=== PATIENT | female | born 1960 | race Caucasian/White ===

== ENCOUNTER → 2020-02-14 | Outpatient (REF) | payer BC ==
[2020-02-14 16:09] LABS: ALBUMIN 4.3 GM/DL (3.2-5.2); ALT/SGPT 50 U/L (12-78); BILIRUBIN,TOTAL 0.3 MG/DL (0.2-1.0); BLOOD UREA NITROGEN 11 MG/DL (7-18); CALCIUM LEVEL 10.2 MG/DL (8.5-10.1); CARBON DIOXIDE LEVEL 26 MEQ/L (21-32); CHLORIDE LEVEL 107 MEQ/L (98-107); GLOMERULAR FILTRATION RATE > 60.0 (>51); GLUCOSE, FASTING 77 MG/DL (70-100); POTASSIUM SERUM 4.6 MEQ/L (3.5-5.1); SODIUM LEVEL 138 MEQ/L (136-145); TOTAL PROTEIN 8.3 GM/DL (6.4-8.2)
[2020-02-14 18:27] LABS: CREATININE, URINE 71.3 MG/DL; MALB URINE SIEMENS 15.5 MG/L; MAU/CREAT RATIO 21.7 MCG/MG (0.0-30.0)
== END ==
LOC: M SFHCPLAZ 14:30
PROVIDERS: ATTEND Nurse Practitioner Family
DX: E11.9 Type 2 diabetes mellitus without complications (principal)

== ENCOUNTER → 2020-08-01 | Outpatient (REF) | payer BC ==
[2020-08-01 12:35] LABS: CREATININE, URINE 71.9 MG/DL; MALB URINE SIEMENS < 5.0 MG/L; MAU/CREAT RATIO 6.9 MCG/MG (0.0-30.0)
[2020-08-01 15:06] LABS: HEMOGLOBIN A1c 6.4 %
[2020-08-01 20:46] LABS: ALBUMIN 3.9 GM/DL (3.2-5.2); ALT/SGPT 27 U/L (12-78); BILIRUBIN,TOTAL 0.2 MG/DL (0.2-1.0); BLOOD UREA NITROGEN 11 MG/DL (7-18); CALCIUM LEVEL 9.1 MG/DL (8.5-10.1); CARBON DIOXIDE LEVEL 23 MEQ/L (21-32); CHLORIDE LEVEL 107 MEQ/L (98-107); CHOLESTEROL LEVEL 235 MG/DL (<200); CHOLESTEROL RISK RATIO 4.272 (<5); CREATININE FOR GFR 0.87 MG/DL (0.55-1.30); GLOMERULAR FILTRATION RATE > 60.0 (>51); GLUCOSE, FASTING 96 MG/DL (70-100); HDL CHOLESTEROL 55 MG/DL (>40); LDL CHOLESTEROL 152 MG/DL (<100); MAGNESIUM LEVEL 2.4 MG/DL (1.8-2.4); NON-HDL-C 180 MG/DL; POTASSIUM SERUM 4.8 MEQ/L (3.5-5.1); SODIUM LEVEL 139 MEQ/L (136-145); TOTAL PROTEIN 7.5 GM/DL (6.4-8.2); TRIGLYCERIDES LEVEL 138 MG/DL (<150)
== END ==
LOC: M PLALAB 08:25
PROVIDERS: ATTEND Nurse Practitioner Family
DX: Z13.220 Encounter for screening for lipoid disorders (principal); E11.9 Type 2 diabetes mellitus without complications; K21.9 Gastro-esophageal reflux disease without esophagitis

== ENCOUNTER → 2020-08-21 | Outpatient (REF) | payer BC | LOC: M SFHCPLAZ 17:20 | PROVIDERS: ATTEND Nurse Practitioner Family | DX: Z12.4 Encounter for screening for malignant neoplasm of cervix (principal) | CPT/HCPCS: 87624; G0123 ==

== ENCOUNTER → 2020-09-10 | Outpatient (CLI) | payer BC ==
[~2020-09-10] MED LIST: FAMO40TA3; GLIP10TA18; JANU100T
--- NOTE | 2020-09-10 13:00 | REPMRS ---
Patient History The patient states she had a clinical breast exam in 08/2020 Baseline Mammogram Patient is postmenopausal. No known family history of cancer. Digital Woman Screen Mammo: September 10, 2020 - Exam #: [id number] Bilateral CC and MLO view(s) were taken. Technologist: Gladys Mosqueda, Technologist No prior studies available for comparison. FINDINGS: The breast tissue is almost entirely fat. The Volpara volumetric breast density category is: A. There has been no change in the appearance of the mammogram from the prior studies. There is no interval development of dominant mass, architectural distortion, or grouped microcalcification typical of malignancy. 3-D tomosynthesis shows no additional findings. Assessment: BI-RADS/ACR category 1 mammogram. Negative Mammogram. Recommendation Routine screening mammogram of both breasts in 1 year (for women over age 40). This patient's [facility] Lifetime Breast Cancer RIsk is estimated at 6.5 %. This mammogram was interpreted with the aid of an FDA-approved computer-aided dectection system. Electronically Signed By: Raji Islas MD 09/10/20 [id number]
== END ==
LOC: M WHC 10:59
PROVIDERS: ATTEND Nurse Practitioner Family
DX: Z12.31 Encounter for screening mammogram for malignant neoplasm of breast (principal)

== ENCOUNTER → 2020-09-25 | Outpatient (CLI) | payer BC | LOC: M LABSMTC 11:02 | PROVIDERS: ATTEND Anesthesiology | DX: Z20.828 Contact with and (suspected) exposure to other viral communicable diseases (principal) ==

== ENCOUNTER 2020-09-30 07:31 | Day surgery (SDC) | payer BC ==
[~2020-09-30] VITALS: Ht 154.9 cm; Wt 90.6 kg
[~2020-09-30 07:31] MED LIST changes: +LIDOCAINE 2% 100MG/5ML SDV (FOR ANES.) As Ordered ONE; +NS 1,000 ML IV ONE; +fentaNYL 100 MCG/2 ML INJECTION (J3010) As Ordered ONE; +propofoL 500 MG/50 ML VIAL As Ordered ONE
--- OUTSIDE RECORDS SUMMARY | 2020-09-30 07:37 | CCD | Continuity of Care Document ---
Author Dee Mack M.D. Organization Unknown Address [address] [place] [address] Phone [phone] Care Team Providers Care Marketing Manager Name Role Phone Venus Mccallum Danielle COOKM [phone] Problems Description No Information Available Social History Type Date Description Comments Sex Unknown ETOH Use 2-3 A Week Tobacco Use Start: Unknown Non Smoker Allergies, Adverse Reactions, Alerts Description No Known Drug Allergies Medications Active Medications SIG Qnty Indications Ordering Provide r Date Glipizide 10mg Tablets 1tab p o bid Unknown Januvia 100mg Tablets 1tab po qd Unknown Famotidine 40mg Tablets 1tab po qd Unknown Immunizations Description No Information Available Vital Signs Date Vital Result Comment 08/23/2020 8:46am BP Systolic 128 mmHg BP Diastolic 74 mmHg Height 60 inches 5'0" Weight 199.00 lb BMI (Body Mass Index) 38.9 kg/m2 [place] Body Weight 100 lb Weight 90.266 kg BSA (Body Surface Area) 1.86 m2 Results Description No Information Available Procedures Description No Information Available Medical Devices Description No Information Available Encounters Description No Information Available Assessments Description No Information Available Plan of Treatment No Information Available Functional Status Description No Information Available Mental Status Description No Information Available Referrals Refer to Dr Reason for Referral Status Appt Date García Currie M.D. colo screen, EGD, diarrhea + bloo d in stool, GERD Scheduled 08/23/[address] [place] [address], [address] [address] [phone]
--- OUTSIDE RECORDS SUMMARY | 2020-09-30 07:37 | CCD ---
Author Author [facility] Organization [facility] ems Address Unknown Phone Unavailable Care Team Providers Care Marketing And Communications Officer Name Role Phone Venus Mccallum PROBLEMS Type Condition ICD9-CM Code WFA61-CA Code Onset Dates Condition S tatus SNOMED Code Notes Problem Lipid screening Z13.220 Active 724330166 Problem Mixed hyperlipidemia E78.2 Active 902988163 Problem Morbid obesity E66.01 Active 797136118 Problem Type 2 diabetes mellitus wit hout complication, without long-term current use of insulin E11.9 Active 163015920 Problem BMI 40.0-44.9, adult Z68.41 Active 361286976 Problem Gastroesophageal reflux dise ase, unspecified whether esophagitis present K21.9 Active 156998636 ALLERGIES Allergen (clinical drug ingredient) Drug/Non Drug Allergy do cumented on EMR Reaction Allergy Type Onset Date Status metformin Metformin HCl([facility] Code:[address]-53) abd cramping Drug Al lergy Active ENCOUNTERS from 1960 to 2020-08-24 Encounter Location Date Provider Diagnosis [address] [address] Aug, 021 Vensu Mccallum Routine gynecological examination Z01.419 ; Cervical cancer screening Z12.4 ; Screening mammogram, encounter for Z12.31 ; Type 2 diabetes mellitus without complication, without long-term current use of insulin E11.9 and Mixed hyperlipidemia E78.2 IMMUNIZATIONS Vaccine Route Administration Date Status Influenza (18 yrs & older) Flublok Unknown Aug 21, 2020 Administered Influenza (18 yrs & older) Flublok Unknown May 30, 2020 Administered SOCIAL HISTORY Tobacco Use: Social History Observation Description Date Details (start date - stop date) Never Smoker Sex Assigned At : Social History Observation Description Sex Assigned At Unknown Audit Question Answer Notes Total Score: 1 Interpretation: Alcohol Education Drug and Alcohol Question Answer Notes Total Score: 0 Interpretation: No problems reported Alcohol Screening: Question Answer Notes Did you have a drink containing alcohol in the past year? Ye s Points 3 Interpretation Positive How often did you have six or more drinks on one occas ion in the past year? Never (0 points) How many drinks did you have on a typica l day when you were drinking in the past year? 1 or 2 (0 points) How often did you have a drink containing alcohol in t he past year? Two to three times per week (3 points) Tobacco Use: Question Answer Notes Are you a: never smoker REASON FOR REFERRAL No Information VITAL SIGNS Weight 198 lbs Aug, Height 60 in Aug, BMI 38.67 kg/m2 Aug, Heart Rate 80 /min Aug, Respiratory Rate 20 /min Aug, Temperature 97.4 degrees Fahrenheit Aug, Oximetry 99 Aug, Blood pressure systolic 120 mm Hg Aug, Blood pressure diastolic 84 mm Hg Aug, MEDICATIONS Medication SIG (Take, Route, Frequency, Duration) Notes Start Da te End Date Status Januvia 100 MG TAKE ONE TABLET BY MOUTH EVERY DAY Active Dicyclomine HCl 20 MG 1 tablet Orally Three times a day as needed for cramping/diarrhea for 30 day(s) Jul, Active GlipiZIDE ER 10 MG 1 tablet with meals Orally twice a day Active Famotidine 40 MG TAKE ONE TABLET BY MOUTH EVERY DAY for 30 Active PROCEDURES No Information RESULTS No Results REASON FOR VISIT and next avail for FEEDER LOADER exam MEDICAL (GENERAL) HISTORY Type Description Date Medical History DM T2 Surgical History Cholecystectomy 2008 Surgical History 1982 Hospitalization History Surgery and Childbirth only Goals Section No Information Health Concerns No Information MEDICAL EQUIPMENT No Information MENTAL STATUS No Information FUNCTIONAL STATUS No Information ASSESSMENTS Encounter Date Diagnosis Assessment Notes Treatment Notes Treatm ent Clinical Notes Aug, Routine gynecological examination (ICD-10 - Z01. 419) Medical, surgical, and family histories were reviewed and updated. See preventative section., age appropriate anticipatory guidance given, per USPSTF recommendations; immunizations up to date. discussed plans for implementing improvement in identified areas. is scheduled for colonoscopy eval Aug, Cervical cancer screening (ICD-10 - Z12.4) Aug, Screening mammogram, encounter for (ICD-10 - Z12 .31) Aug, Type 2 diabetes mellitus wit hout complication, without long-term current use of insulin (ICD-10 - E11.9) improved - continue diet and current meds Aug, Mixed hyperlipidemia (ICD-10 - E78.2) declines medication - prefers to focus on lifestyle modifications - will re- check prior to f/up PLAN OF TREATMENT Medication Medication Name Sig Start Date Stop Date Januvia 100 MG TAKE ONE TABLET BY MOUTH EVERY DAY GlipiZIDE ER 10 MG 1 tablet with meals Orally twice a day Treatment Notes Assessment Notes Clinical Notes Routine gynecological examination Medical, surgical, a nd family histories were reviewed and updated. See preventative section., age appropriate anticipatory guidance given, per USPSTF recommendations; immunizations up to date. discussed plans for implementing improvement in identified areas. is scheduled for colonoscopy eval Type 2 diabetes mellitus without complic ation, without long-term current use of insulin improved - continue diet and current meds Mixed hyperlipidemia declines medication - prefer s to focus on lifestyle modifications - will re-check prior to f/up Treatment Notes Test Name Order Date PAP REQUEST FOR SERVICE 2020-08-24 Future Test Test Name Order Date Comprehensive Metabolic Profile (CMP) [id number] HEMOGLOBIN A1c [id number] MICROALBUMIN RANDOM [id number] LIPID PANEL (CARDIAC RISK) [id number] [facility] Domingo Screening Bilateral (Ultrasound if Indicated ) (3D Mammo) [id number] Next Appt Details 6 Months (30min) Reason:f/u after labs Provider Name:Venus Alessio, 2021-02-26 08:4 5:00 AM, [address] [place], [address], Follow Up:6 Months (30min)f/u after labs Insurance Providers Payer Name Payer Address Payer Phone Insured Name Patient Relati onship to Insured Coverage Start Date Coverage End Date [id number] [facility] [id number] FIDE SCHAEFFER
--- OUTSIDE RECORDS SUMMARY | 2020-09-30 07:38 | CCD ---
Author Author [facility] Organization [facility] Address Unknown Phone Unavailable Support Name Relationship Address Phone [employer] Next Of Kin [address] [place] [address] NATI SCHAEFFER Next Of Kin [address] [place] [address] JONASJC ROWLEY Next Of Kin [address] [place] [id number] Unavailable NATI SCHAEFFER ECON [address] [place] [address] [phone] Re-disclosure Warning The records that you are about to access may contain information from federally-assisted alcohol or drug abuse programs. If such information is present, then the following federally mandated warning applies: This information has been disclosed to you from records protected by federal confidentiality rules (42 CFR part 2). The federal rules prohibit you from making any further disclosure of this information unless further disclosure is expressly permitted by the written consent of the person to whom it pertains or as otherwise permitted by 42 CFR part 2. A general authorization for the release of medical or other information is NOT sufficient for this purpose. The Federal rules restrict any use of the information to criminally investigate or prosecute any alcohol or drug abuse patient.The records that you are about to access may contain highly sensitive health information, the redisclosure of which is protected by Article 27-F of the [facility] Public Health law. If you continue you may have access to information: Regarding HIV / AIDS; Provided by facilities licensed or operated by the [facility] Office of Mental Health; or Provided by the [facility] Office for People With Developmental Disabilities. If such information is present, then the following [facility] mandated warning applies: This information has been disclosed to you from confidential records which are protected by state law. State law prohibits you from making any further disclosure of this information without the specific written consent of the person to whom it pertains, or as otherwise permitted by law. Any unauthorized further disclosure in violation of state law may result in a fine or group home sentence or both. A general authorization for the release of medical or other information is NOT sufficient authorization for further disc losure. Encounters Encounter Providers Location Date Indications Data Source(s ) [place] [address] [facility] [address] 08/21/2020 12:00:00 AM EST eCW1 ([facility]) [place] [address] [facility] [address] 07/17/2020 12:00:00 AM EST eCW1 ([facility]) Immunizations Vaccine Date Status Description Data Source(s) influenza, recombinant, quadrIvalent,injectable, prese rvative free 08/21/2020 03:02:00 PM EST completed eCW1 ([facility]) influenza, recombinant, quadrIvalent,injectable, prese rvative free 05/30/2020 09:17:00 AM EDT completed eCW1 ([facility]) influenza, recombinant, quadrIvalent,injectable, prese rvative free 05/30/2020 09:17:00 AM EDT completed eCW1 ([facility]) FLU VACCINE QUADRIV (4 YEARS AND OLDER)CELL D ERIVED 05/29/2020 12:00:00 AM EDT completed [facility] Medications Medication Brand Name Start Date Product Form Dose Route Admi nistrative Instructions Pharmacy Instructions Status Indications Reaction Description Data Source(s) 10 mg-3.5 gram -12 gram/160 mL 08/23/2020 12:00:00 AM EST so lution 320 FOLLOW PRE-PROCEDURE INSTRUCTIONS, START THE DAY BEFORE PROCEDURE FOLLOW PRE- PROCEDURE INSTRUCTIONS, START THE DAY BEFORE PROCEDURE SOLD: 08/28/2020 [facility] 5 mg 08/23/2020 12:00:00 AM EST tablet,delayed release (DR/EC) 4 TAKE 4 TABLETS BY MOUTH PER BOWEL PREP INSTRUCTIONS TAKE 4 TABLETS BY MOUTH PER BOWEL PREP INSTRUCTIONS SOLD: 08/28/2020 [facility] Famotidine 40 MG Oral Tablet FAMOTIDINE 08/12/2020 12:00:00 AM EST tab let 30 TAKE ONE TABLET BY MOUTH EVERY DAY TAKE ONE TABLET BY MOUTH EVERY DAY SOLD: 08/15/2020 [facility] 10 mg 08/12/2020 12:00:00 AM EST tablet extended release 24hr 60 TAKE ONE TABLET BY MOUTH TWICE A DAY WITH MEALS TAKE ONE TABLET BY MOUTH TWICE A DAY WIT H MEALS SOLD: 08/15/2020 [facility] 100 mg 08/12/2020 12:00:00 AM EST tablet 30 TAKE ONE TABLET BY MOUTH EVERY DAY TAKE ONE TABLET BY MOUTH EVERY DAY SOLD: 08/15/2020 [facility] 100 mg 08/12/2020 12:00:00 AM EST tablet 30 TAKE ONE TABLET BY MOUTH EVERY DAY TAKE ONE TABLET BY MOUTH EVERY DAY SOLD: 09/14/2020 [facility] 10 mg 08/12/2020 12:00:00 AM EST tablet extended release 24hr 60 TAKE ONE TABLET BY MOUTH TWICE A DAY WITH MEALS TAKE ONE TABLET BY MOUTH TWICE A DAY WIT H MEALS SOLD: 09/14/2020 [facility] Famotidine 40 MG Oral Tablet FAMOTIDINE 08/12/2020 12:00:00 AM EST tab let 30 TAKE ONE TABLET BY MOUTH EVERY DAY TAKE ONE TABLET BY MOUTH EVERY DAY SOLD: 09/14/2020 [facility] Famotidine 40 MG Oral Tablet FAMOTIDINE 07/17/2020 12:00:00 AM EST tab let 30 TAKE ONE TABLET BY MOUTH EVERY DAY TAKE ONE TABLET BY MOUTH EVERY DAY SOLD: 07/18/2020 [facility] Dicyclomine Hydrochloride 20 MG Oral Tablet Dicyclomin e HCl 20 MG Dicyclomine HCl 20 MG 07/17/2020 12:00:00 AM EST 1.0 {tablet} ac tive Dicyclomine HCl [facility] Dicyclomine Hydrochloride 20 MG Oral Tablet Dicyclomin e HCl 20 MG Dicyclomine HCl 20 MG 07/17/2020 12:00:00 AM EST 1.0 {tablet} ac tive Dicyclomine HCl 20 MG [facility]CW1 ([facility]) 100 mg 06/09/2020 12:00:00 AM EDT tablet 30 TAKE ONE TABLET BY MOUTH EVERY DAY TAKE ONE TABLET BY MOUTH EVERY DAY SOLD: 06/16/2020 [facility] 100 mg 06/09/2020 12:00:00 AM EDT tablet 30 TAKE ONE TABLET BY MOUTH EVERY DAY TAKE ONE TABLET BY MOUTH EVERY DAY SOLD: 07/16/2020 [facility] 10 mg 06/09/2020 12:00:00 AM EDT tablet extended release 24hr 60 TAKE ONE TABLET BY MOUTH TWICE A DAY WITH MEALS TAKE ONE TABLET BY MOUTH TWICE A DAY WIT H MEALS SOLD: 07/16/2020 [facility] 10 mg 06/09/2020 12:00:00 AM EDT tablet extended release 24hr 60 TAKE ONE TABLET BY MOUTH TWICE A DAY WITH MEALS TAKE ONE TABLET BY MOUTH TWICE A DAY WIT H MEALS SOLD: 06/16/2020 [facility] 100 mg 04/11/2020 12:00:00 AM EDT tablet 30 TAKE ONE TABLET BY MOUTH EVERY DAY TAKE ONE TABLET BY MOUTH EVERY DAY SOLD: 04/11/2020 [facility] 100 mg 04/11/2020 12:00:00 AM EDT tablet 30 TAKE ONE TABLET BY MOUTH EVERY DAY TAKE ONE TABLET BY MOUTH EVERY DAY SOLD: 05/13/2020 [facility] 10 mg 04/08/2020 12:00:00 AM EDT tablet extended release 24hr 60 TAKE ONE TABLET BY MOUTH TWICE A DAY WITH MEALS TAKE ONE TABLET BY MOUTH TWICE A DAY WIT H MEALS SOLD: 05/13/2020 [facility] 10 mg 04/08/2020 12:00:00 AM EDT tablet extended release 24hr 60 TAKE ONE TABLET BY MOUTH TWICE A DAY WITH MEALS TAKE ONE TABLET BY MOUTH TWICE A DAY WIT H MEALS SOLD: 04/11/2020 [facility] 40 mg 03/28/2020 12:00:00 AM EDT tablet 30 TAKE ONE TABLET BY MOUTH EVERY DAY TAKE ONE TABLET BY MOUTH EVERY DAY SOLD: 05/13/2020 [facility] 40 mg 03/28/2020 12:00:00 AM EDT tablet 30 TAKE ONE TABLET BY MOUTH EVERY DAY TAKE ONE TABLET BY MOUTH EVERY DAY SOLD: 06/16/2020 [facility] 40 mg 03/28/2020 12:00:00 AM EDT tablet 30 TAKE ONE TABLET BY MOUTH EVERY DAY TAKE ONE TABLET BY MOUTH EVERY DAY SOLD: 03/29/2020 [facility] 40 mg 03/28/2020 12:00:00 AM EDT tablet 14 TAKE ONE TABLET BY MOUTH EVERY DAY TAKE ONE TABLET BY MOUTH EVERY DAY SOLD: 04/28/2020 [facility] 20 mg 03/28/2020 12:00:00 AM EDT tablet 90 TAKE ONE TABLET BY MOUTH THREE TIMES A DAY NEEDED TAKE ONE TABLET BY MOUTH THREE TIMES A DAY NEEDED S OLD: 03/29/2020 [facility] 100 mg 02/21/2020 12:00:00 AM EDT tablet 30 TAKE ONE TABLET BY MOUTH EVERY DAY TAKE ONE TABLET BY MOUTH EVERY DAY SOLD: 03/12/2020 [facility] 100 mg 02/21/2020 12:00:00 AM EDT tablet 20 TAKE ONE TABLET BY MOUTH EVERY DAY TAKE ONE TABLET BY MOUTH EVERY DAY SOLD: 02/21/2020 [facility] 500 mg 01/10/2020 12:00:00 AM EDT tablet extended release 24 hr 120 TAKE 2 TABLETS BY MOUTH TWICE A DAY WITH MEALS TAKE 2 TABLETS BY MOUTH TWICE A DAY WITH MEALS SOLD: 02/11/2020 [facility] 500 mg 01/10/2020 12:00:00 AM EDT tablet extended release 24 hr 120 TAKE 2 TABLETS BY MOUTH TWICE A DAY WITH MEALS TAKE 2 TABLETS BY MOUTH TWICE A DAY WITH MEALS SOLD: 01/11/2020 [facility] 500 mg 01/10/2020 12:00:00 AM EDT tablet extended release 24 hr 120 TAKE 2 TABLETS BY MOUTH TWICE A DAY WITH MEALS TAKE 2 TABLETS BY MOUTH TWICE A DAY WITH MEALS SOLD: 03/12/2020 [facility] 10 mg 01/10/2020 12:00:00 AM EDT tablet extended release 24hr 60 TAKE ONE TABLET BY MOUTH TWICE A DAY WITH FOOD TAKE ONE TABLET BY MOUTH TWICE A DAY WIT H FOOD SOLD: 01/11/2020 [facility] 10 mg 01/10/2020 12:00:00 AM EDT tablet extended release 24hr 60 TAKE ONE TABLET BY MOUTH TWICE A DAY WITH FOOD TAKE ONE TABLET BY MOUTH TWICE A DAY WIT H FOOD SOLD: 02/11/2020 [facility] 10 mg 01/10/2020 12:00:00 AM EDT tablet extended release 24hr 60 TAKE ONE TABLET BY MOUTH TWICE A DAY WITH FOOD TAKE ONE TABLET BY MOUTH TWICE A DAY WIT H FOOD SOLD: 03/12/2020 [facility] 10 mg 10/17/2019 12:00:00 AM EST tablet extended release 24hr 36 TAKE ONE TABLET BY MOUTH TWICE A DAY WITH FOOD TAKE ONE TABLET BY MOUTH TWICE A DAY WIT H FOOD SOLD: 11/20/2019 [facility] 10 mg 10/17/2019 12:00:00 AM EST tablet extended release 24hr 60 TAKE ONE TABLET BY MOUTH TWICE A DAY WITH FOOD TAKE ONE TABLET BY MOUTH TWICE A DAY WIT H FOOD SOLD: 2019 [facility] 10 mg 10/17/2019 12:00:00 AM EST tablet extended release 24hr 60 TAKE ONE TABLET BY MOUTH TWICE A DAY WITH FOOD TAKE ONE TABLET BY MOUTH TWICE A DAY WIT H FOOD SOLD: 10/21/2019 [facility] 500 mg 10/17/2019 12:00:00 AM EST tablet extended release 24 hr 72 TAKE 2 TABLETS BY MOUTH TWICE A DAY WITH MEALS TAKE 2 TABLETS BY MOUTH TWICE A DAY WITH MEALS SOLD: 11/20/2019 [facility] 500 mg 10/17/2019 12:00:00 AM EST tablet extended release 24 hr 120 TAKE 2 TABLETS BY MOUTH TWICE A DAY WITH MEALS TAKE 2 TABLETS BY MOUTH TWICE A DAY WITH MEALS SOLD: 10/21/2019 [facility] 500 mg 10/17/2019 12:00:00 AM EST tablet extended release 24 hr 120 TAKE 2 TABLETS BY MOUTH TWICE A DAY WITH MEALS TAKE 2 TABLETS BY MOUTH TWICE A DAY WITH MEALS SOLD: 2019 [facility] 10 mg 06/14/2019 12:00:00 AM EDT tablet extended release 24hr 60 TAKE ONE TABLET BY MOUTH TWICE A DAY TAKE ONE TABLET BY MOUTH TWICE A DAY SOLD: 08/18/2019 [facility] 500 mg 06/14/2019 12:00:00 AM EDT tablet extended release 24 hr 120 TAKE TWO TABLETS BY MOUTH TWICE A DAY WITH MEALS TAKE TWO TABLETS BY MOUTH TWICE A DAY WITH MEALS SOLD: 08/18/2019 [facility] 500 mg 06/14/2019 12:00:00 AM EDT tablet extended release 24 hr 120 TAKE TWO TABLETS BY MOUTH TWICE A DAY WITH MEALS TAKE TWO TABLETS BY MOUTH TWICE A DAY WITH MEALS SOLD: 09/18/2019 [facility] 10 mg 06/14/2019 12:00:00 AM EDT tablet extended release 24hr 60 TAKE ONE TABLET BY MOUTH TWICE A DAY TAKE ONE TABLET BY MOUTH TWICE A DAY SOLD: 09/18/2019 [facility] Insurance Providers Payer name Policy type / Coverage type Policy ID Covered green party ID Covered green party's relationship to summers Policy Summers Plan Information [employer] [place] 302/307 [id number] SP [id number] [employer] [place] 306/[id number] SP [id number] [employer] [place] 302/307 [id number] SP [id number] [facility] [id number] S [id number] [facility] [id number] S [id number] Problems, Conditions, and Diagnoses Code Display Name Description Problem Type Effective Dates Data Source(s) E78.2 [id number] Mixed hyperlipidemia Problem 08/21/2020 12:0 0:00 AM EST [facility] K21.9 Gastroesophageal reflux disease Gastroes ophageal reflux disease, unspecified whether esophagitis present Problem 07/17/2020 12:00:00 AM EST [facility]) Z13.220 [id number] Lipid screening Problem 07/17/2020 12:00:00 AM EST [facility]) Z68.41 522927076 BMI 40.0-44.9, adult Problem 02/14/2020 12:0 0:00 AM EDT eCW1 [facility]) E11.9 [id number] Type 2 diabetes rito itus without complication, without long-term current use of insulin Problem 02/14/2020 12:00:00 AM EDT eCW1 ([facility]) E66.01 854574493 Morbid obesity Problem 02/14/2020 12:00:00 A M EDT eCW1 ([facility]) Results ID Date Data Source [id number] 09/25/2020 12:00:00 PM EST [facility] Name Value Range Interpretation Code Description Data Honey rce(s) Supporting Document(s) SARS coronavirus 2 RNA Not Detected [facility] [place] This lab was ordered by [facility] and reported by [facility]. Procedure Social History Code Duration Value Status Description Data Source(s ) Smoking 08/21/2020 12:00:00 AM EST Never Smoker completed Never S moker eCW1 ([facility]) Smoking 07/17/2020 12:00:00 AM EST Never Smoker completed Never S moker eCW1 ([facility]) Vital Signs ID Date Data Source UNK Name Value Range Interpretation Code Description Data Source(s) Body surface area Derived from formula 1.86 m2 1.86 m2 [facility] Body weight 90.266 kg 90.266 kg [facility] ([facility]) [place] body weight 100 [lb_av] 100 [lb_av] [facility] T ([facility]) Body mass index (BMI) [Ratio] 38.9 kg/m2 38.9 k g/m2 [facility] ([facility]) Body weight 199.00 [lb_av] 199.00 [lb_av] [facility] Body height 60 [in_i] 60 [in_i] [facility] ([facility]) 5'0" Diastolic blood pressure 74 mm[Hg] 74 mm[Hg] [facility] ([facility]) Systolic blood pressure 128 mm[Hg] 128 mm[Hg] [facility] Diastolic blood pressure 84 mm[Hg] 84 mm[Hg] eCW1 ([facility]) Systolic blood pressure 120 mm[Hg] 120 mm[Hg] e CW1 ([facility]) Body temperature 97.4 [degF] 97.4 [degF] eCW1 ( [facility]) Respiratory rate 20 /min 20 /min eCW1 ([facility]) Heart rate 80 /min 80 /min eCW1 ([facility]) Body mass index (BMI) [Ratio] 38.67 kg/m2 38.67 kg/m2 W1 ([facility]) Body height 60 [in_i] 60 [in_i] eCW1 ([facility]) Body weight 198 [lb_av] 198 [lb_av] eCW1 ([facility]) Diastolic blood pressure 70 mm[Hg] 70 mm[Hg] eCW1 [facility]) Systolic blood pressure 130 mm[Hg] 130 mm[Hg] e CW1 ([facility]) Body temperature 97 [degF] 97 [degF] eCW1 ([facility]) Respiratory rate 20 /min 20 /min eCW1 ([facility]) Heart rate 82 /min 82 /min eCW1 ([facility]) Body mass index (BMI) [Ratio] 39.25 kg/m2 39.25 kg/m2 eCW1 [facility]) Body height 60 [in_i] 60 [in_i] eCW1 ([facility]) Body weight 201 [lb_av] 201 [lb_av] eCW1 ([facility]) Patient Treatment Plan of Care Planned Activity Planned Date Details Description Data Source (s) Dicyclomine Hydrochloride 20 MG Oral Tablet 07/17/2020 12:00:00 AM EST [facility]CW1 [facility])
--- OUTSIDE RECORDS SUMMARY | 2020-09-30 07:38 | CCD ---
Author Author [facility] Organization [facility] Address Unknown Phone Unavailable Care Team Providers Care Physical Sciences Professor Name Role Phone Venus Mccallum PROBLEMS Type Condition ICD9-CM Code GHC78-TO Code Onset Dates Condition S tatus SNOMED Code Notes Problem Gastroesophageal reflux dise ase, unspecified whether esophagitis present K21.9 Active 754696189 Problem Lipid screening Z13.220 Active 278537871 Problem Type 2 diabetes mellitus wit hout complication, without long-term current use of insulin E11.9 Active 978808401 Problem BMI 40.0-44.9, adult Z68.41 Active 373023935 Problem Morbid obesity E66.01 Active 766823694 ALLERGIES Allergen (clinical drug ingredient) Drug/Non Drug Allergy do cumented on EMR Reaction Allergy Type Onset Date Status metformin Metformin HCl([facility] Code:[address]-22) abd cramping Drug Al lergy Active ENCOUNTERS from 1960 to 2020-07-20 Encounter Location Date Provider Diagnosis [address] [address] Jul, 020 [facility] Encounter for well adult exam with abnormal findings Z00.01 ; Colon cancer screening Z12.11 ; Lipid screening Z13.220 ; Morbid obesity E66.01 ; Type 2 diabetes mellitus without complication, without long-term current use of insulin E11.9 ; Gastroesophageal reflux disease, unspecified whether esophagitis present K21.9 and Blood in the stool K92.1 IMMUNIZATIONS Vaccine Route Administration Date Status Influenza [...] FOR REFERRAL No Information VITAL SIGNS Weight 201 lbs Jul, Height 60 in Jul, BMI 39.25 kg/m2 Jul, Heart Rate 82 /min Jul, Respiratory Rate 20 /min Jul, Temperature 97 degrees Fahrenheit Jul, Oximetry 99 Jul, Blood pressure systolic 130 mm Hg Jul, Blood pressure diastolic 70 mm Hg Jul, MEDICATIONS Medication SIG (Take, Route, Frequency, Duration) Notes Start Da te End Date Status Januvia 100 MG TAKE ONE TABLET BY MOUTH EVERY DAY Active GlipiZIDE ER 10 MG 1 tablet with meals Orally twice a day Active Famotidine 40 MG TAKE ONE TABLET BY MOUTH EVERY DAY Active Dicyclomine HCl 20 MG 1 tablet Orally Three times a day as needed for cramping/diarrhea for 30 day(s) Jul, Active PROCEDURES No Information RESULTS No Results REASON FOR VISIT follow up did not do labs MEDICAL (GENERAL) HISTORY Type Description Date Medical History DM T2 Surgical History Cholecystectomy 2008 Surgical History 1982 Hospitalization History Surgery and Childbirth only Goals Section No Information Health Concerns No Information MEDICAL EQUIPMENT No Information MENTAL STATUS No Information FUNCTIONAL STATUS No Information ASSESSMENTS Encounter Date Diagnosis Assessment Notes Treatment Notes Treatm ent Clinical Notes Jul, Encounter for well adult exa m with abnormal findings (ICD-10 - Z00.01) Medical, surgical, and family histories were reviewed and updated. See preventative section. Due for [employer] exam, mammogram, colonoscopy screen and diabetic eye exAM Jul, Colon cancer screening (ICD-10 - Z12.11) Jul, Lipid screening (ICD-10 - Z13.220) Jul, Morbid obesity (ICD-10 - E66.01) Jul, Type 2 diabetes mellitus wit hout complication, without long-term current use of insulin (ICD-10 - E11.9) Jul, Gastroesophageal reflux dise ase, unspecified whether esophagitis present (ICD-10 - K21.9) Jul, Blood in the stool (ICD-10 - K92.1) referred to GI PLAN OF TREATMENT Medication Medication Name Sig Start Date Stop Date Januvia 100 MG TAKE ONE TABLET BY MOUTH EVERY DAY Famotidine 40 MG TAKE ONE TABLET BY MOUTH EVERY DAY Dicyclomine HCl 20 MG 1 tablet Orally Three times a day as needed for cramping/diarrhea for 30 day(s) Jul, GlipiZIDE ER 10 MG 1 tablet with meals Orally twice a day Treatment Notes Assessment Notes Clinical Notes Encounter for well adult exam with abnormal findings M edical, surgical, and family histories were reviewed and updated. See preventative section. Due for [employer] exam, mammogram, colonoscopy screen and diabetic eye exAM Blood in the stool referred to GI Future Test Test Name Order Date Comprehensive Metabolic Profile (CMP) [id number] LIPID PANEL (CARDIAC RISK) [id number] HEMOGLOBIN A1c [id number] MICROALBUMIN RANDOM [id number] MAGNESIUM LEVEL [id number] Next Appt Details f/up after labs, and next avail for [employer] exam, Reason: Provider Name:Venus Mccallum, 2020-08-21 03:0 0:00 PM, [address] [place], [address], Insurance Providers Payer Name Payer Address Payer Phone Insured Name Patient Relati onship to Insured Coverage Start Date Coverage End Date [employer] [facility] [id number] [facility] [id number] [place]
--- NOTE | 2020-09-30 09:01 | ROOR ---
Patient Name: Dee Shirley Procedure Date: 09/30/2020 8:06 AM Date of : 1960 Age: 59 Room: [facility] Gender: Female Note Status: Finalized Procedure: Upper GI endoscopy Indications: Heartburn, Suspected gastro-esophageal reflux disease Providers: García Currie MD Referring MD: Venus Mccallum NP Requesting Provider: Medicines: Monitored Anesthesia Care Complications: No immediate complications. Procedure: Pre-Anesthesia Assessment: - Prior to the procedure, a History and Physical was performed, and patient medications and allergies were reviewed. The patient is competent. The risks and benefits of the procedure and the sedation options and risks were discussed with the patient. All questions were answered and informed consent was obtained. Patient identification and proposed procedure were verified by the physician, the nurse and the anesthesiologist in the procedure room. Mental Status Examination: alert and oriented. Airway Examination: normal oropharyngeal airway and neck mobility. Respiratory Examination: clear to auscultation. CV Examination: normal. Prophylactic Antibiotics: The patient does not require prophylactic antibiotics. Prior Anticoagulants: The patient has taken no previous anticoagulant or antiplatelet agents. ASA Grade Assessment: III - A patient with severe systemic disease. After reviewing the risks and benefits, the patient was deemed in satisfactory condition to undergo the procedure. The anesthesia plan was to use monitored anesthesia care (MAC). Immediately prior to administration of medications, the patient was re-assessed for adequacy to receive sedatives. The heart rate, respiratory rate, oxygen saturations, blood pressure, adequacy of pulmonary ventilation, and response to care were monitored throughout the procedure. The physical status of the patient was re-assessed after the procedure. The Endoscope was introduced through the mouth, and advanced to the second part of duodenum. The upper GI endoscopy was accomplished without difficulty. The patient tolerated the procedure well. Findings: A medium-sized hiatal hernia was present. LA Grade B (one or more mucosal breaks greater than 5 mm, not extending between the tops of two mucosal folds) esophagitis with no bleeding was found in the distal esophagus. Biopsies were taken with a cold forceps for histology. Verification of patient identification for the specimen was done by the physician and nurse using the patient's name, date and medical record number. Estimated blood loss was minimal. Scattered moderate inflammation characterized by adherent blood, erosions, erythema, friability and granularity was found in the gastric antrum. Biopsies were taken with a cold forceps for histology. Biopsies were taken with a cold forceps for Helicobacter pylori testing. No gross lesions were noted in the duodenal bulb and in the second portion of the duodenum. Impression: - Medium-sized hiatal hernia. - LA Grade B reflux esophagitis. Rule out Ching's esophagus. Biopsied. - Gastritis. Biopsied. - No gross lesions in the duodenal bulb and in the second portion of the duodenum. Recommendation: - Patient has a contact number available for emergencies. The signs and symptoms of potential delayed complications were discussed with the patient. Return to normal activities tomorrow. Written discharge instructions were provided to the patient. - Anti-acid reflux diet -- small meals, sit upright atleast 1 hour after meals, avoid fatty/ oily foods and avoid foods that cause reflux. - Continue present medications. - Await pathology results. - Follow an antireflux regimen. - Repeat upper endoscopy in 1 year for surveillance based on pathology results. - Telephone GI clinic for pathology results in 2 weeks. - Return to primary care physician. - Follow the recommendations as per the other procedure note. Procedure Code(s): --- Professional --- 12217, Esophagogastroduodenoscopy, flexible, transoral; with biopsy, single or multiple Diagnosis Code(s): --- Professional --- K44.9, Diaphragmatic hernia without obstruction or gangrene K21.0, Gastro-esophageal reflux disease with esophagitis K29.70, Gastritis, unspecified, without bleeding R12, Heartburn CPT copyright 2019 [employer]. All rights reserved. The codes documented in this report are preliminary and upon agriculture intern review may be revised to meet current compliance requirements. García Currie MD García Currie MD 09/30/2020 9:01:19 AM Electronically signed by García Currie MD Number of Addenda: 0 Note Initiated On: 09/30/2020 8:06 AM Estimated Blood Loss: Estimated blood loss was minimal.
[2020-09-30 09:13] VITALS: BP 124/75
--- NOTE | 2020-09-30 09:27 | ROOR ---
Patient Name: Dee Shirley Procedure Date: 09/30/2020 8:07 AM Date of : 1960 Age: 59 Room: [facility] Gender: Female Note Status: Finalized Procedure: Colonoscopy Indications: Screening for colorectal malignant neoplasm Providers: García Currie MD Referring MD: Venus Mccallum NP Requesting Provider: Medicines: Monitored Anesthesia Care Complications: No immediate complications. Procedure: Pre-Anesthesia Assessment: - Prior to the procedure, a History and Physical was performed, and patient medications and allergies were reviewed. The patient is competent. The risks and benefits of the procedure and the sedation options and risks were discussed with the patient. All questions were answered and informed consent was obtained. Patient identification and proposed procedure were verified by the physician, the nurse and the anesthesiologist in the procedure room. Mental Status Examination: alert and oriented. Airway Examination: normal oropharyngeal airway and neck mobility. Respiratory Examination: clear to auscultation. CV Examination: normal. Prophylactic Antibiotics: The patient does not require prophylactic antibiotics. Prior Anticoagulants: The patient has taken no previous anticoagulant or antiplatelet agents. ASA Grade Assessment: III - A patient with severe systemic disease. After reviewing the risks and benefits, the patient was deemed in satisfactory condition to undergo the procedure. The anesthesia plan was to use monitored anesthesia care (MAC). Immediately prior to administration of medications, the patient was re-assessed for adequacy to receive sedatives. The heart rate, respiratory rate, oxygen saturations, blood pressure, adequacy of pulmonary ventilation, and response to care were monitored throughout the procedure. The physical status of the patient was re-assessed after the procedure. The Colonoscope was introduced through the anus and advanced to the terminal ileum, with identification of the appendiceal orifice and IC valve. The colonoscopy was performed without difficulty. The patient tolerated the procedure well. The quality of the bowel preparation was good. The terminal ileum, ileocecal valve, appendiceal orifice, and rectum were photographed. Scope insertion time was 2 minutes. Scope withdrawal time was 9 minutes. The total duration of the procedure was 11 minutes. Findings: The digital rectal exam revealed a firm rectal mass palpated 3.0 cm from the anal verge. The mass was non-circumferential and located predominantly at the posterior bowel wall. The terminal ileum appeared normal. A fungating, infiltrative and ulcerated non-obstructing large mass was found in the rectum. The mass was partially circumferential (involving one-half of the lumen circumference). The mass measured four cm in length. In addition, its diameter measured four mm. Oozing was present. This was biopsied with a cold forceps for histology. Verification of patient identification for the specimen was done by the physician and nurse using the patient's name, date and medical record number. Estimated blood loss was minimal. A 6 mm polyp was found in the transverse colon. The polyp was sessile. The polyp was removed with a cold snare. Resection and retrieval were complete. Multiple small and large-mouthed diverticula were found from sigmoid to transverse colon. There was no evidence of diverticular bleeding. Non-bleeding external and internal hemorrhoids were found during retroflexion. The hemorrhoids were medium-sized. Impression: - Rectal mass 3.0 cm from the anal verge. - The examined portion of the ileum was normal. - Likely malignant tumor in the rectum. Biopsied. - One 6 mm polyp in the transverse colon, removed with a cold snare. Resected and retrieved. - Moderate diverticulosis from sigmoid to transverse colon. There was no evidence of diverticular bleeding. - Non-bleeding external and internal hemorrhoids. Recommendation: - Patient has a contact number available for emergencies. The signs and symptoms of potential delayed complications were discussed with the patient. Return to normal activities tomorrow. Written discharge instructions were provided to the patient. - High fiber diet. - Continue present medications. - Await pathology results. - Perform magnetic resonance imaging (MRI) with gadolinium in 1 week. - Check liver enzymes (AST, ALT, alkaline phosphatase, bilirubin), hemogram with white blood cell count and platelets and CEA in 1 week. - Refer to an oncologist at appointment to be scheduled. - Telephone GI clinic for pathology results in 1 week. - Return to primary care physician. Procedure Code(s): --- Professional --- 27940, Colonoscopy, flexible; with removal of tumor(s), polyp(s), or other lesion(s) by snare technique 52786, 59, Colonoscopy, flexible; with biopsy, single or multiple Diagnosis Code(s): --- Professional --- Z12.11, Encounter for screening for malignant neoplasm of colon K62.89, Other specified diseases of anus and rectum K64.8, Other hemorrhoids D49.0, Neoplasm of unspecified behavior of digestive system K63.5, Polyp of colon K57.30, Diverticulosis of large intestine without perforation or abscess without bleeding CPT copyright 2019 [employer] [place]. All rights reserved. The codes documented in this report are preliminary and upon shells inspector review may be revised to meet current compliance requirements. García Currie MD García Currie MD 09/30/2020 9:27:21 AM Electronically signed by García Currie MD Number of Addenda: 0 Note Initiated On: 09/30/2020 8:07 AM Estimated Blood Loss: Estimated blood loss was minimal.
== END 2020-09-30 09:34 | disposition home or self-care (01) ==
LOC: M OPP 07:31
PROVIDERS: ATTEND Internal Medicine Gastroenterology
DX: Z12.11 Encounter for screening for malignant neoplasm of colon (principal); R12 Heartburn; D12.6 Benign neoplasm of colon, unspecified; D12.8 Benign neoplasm of rectum; K57.30 Diverticulosis of large intestine without perforation or abscess without bleeding; K64.8 Other hemorrhoids; K62.89 Other specified diseases of anus and rectum; D13.0 Benign neoplasm of esophagus; K21.00 Gastro-esophageal reflux disease with esophagitis, without bleeding; K29.70 Gastritis, unspecified, without bleeding; K44.9 Diaphragmatic hernia without obstruction or gangrene; Z79.899 Other long term (current) drug therapy
CPT/HCPCS: 43239; 45380; 45385; 88305; 88342; J3010

== ENCOUNTER → 2020-10-10 | Outpatient (CLI) | payer BC ==
[~2020-10-10] MED LIST changes: -LIDOCAINE 2% 100MG/5ML SDV (FOR ANES.) As Ordered ONE; -NS 1,000 ML IV ONE; -fentaNYL 100 MCG/2 ML INJECTION (J3010) As Ordered ONE; -propofoL 500 MG/50 ML VIAL As Ordered ONE
== END ==
LOC: M LABSMTC 13:07
PROVIDERS: ATTEND Surgery
DX: Z11.52 Encounter for screening for COVID-19 (principal)

== ENCOUNTER → 2020-10-22 | Outpatient (REF) | payer BC ==
[~2020-10-22] MED LIST changes: +ASPI81CH33 PO; +DICY20TA11 PO; +OSTE1TAB2 PO; +VITA100021 PO
[2020-10-22 13:44] LABS: BASO # 0.1 10^3/uL (0.0-0.2); BASO % 0.7 % (0.0-1.0); EOS # 0.2 10^3/uL (0.0-0.5); EOS % 2.7 % (0.0-3.0); HEMATOCRIT 42.8 % (36.0-47.0); HEMOGLOBIN 13.7 g/dl (12.0-15.5); LYMPH # 2.3 10^3/uL (1.5-5.0); LYMPH % 27.4 % (24.0-44.0); MEAN CORPUSCULAR HEMOGLOBIN 26.8 pg (27.0-33.0); MEAN CORPUSCULAR VOLUME 83.6 fl (80.0-96.0); MONO # 0.6 10^3/uL (0.0-0.8); MONO % 7.2 % (2.0-8.0); NEUTROPHILS # 5.1 10^3/uL (1.5-8.5); NEUTROPHILS % 61.8 % (36.0-66.0); PLATELET COUNT, AUTOMATED 310 10^3/uL (150-450); RED BLOOD COUNT 5.12 10^6/uL (4.00-5.40); WHITE BLOOD COUNT 8.2 10^3/uL (4.0-10.0)
[2020-10-22 14:16] LABS: ALBUMIN 4.2 GM/DL (3.2-5.2); ALT/SGPT 26 U/L (12-78); BILIRUBIN,DIRECT < 0.1 MG/DL (0.0-0.2); BILIRUBIN,TOTAL 0.2 MG/DL (0.2-1.0); BLOOD UREA NITROGEN 14 MG/DL (7-18); CREATININE FOR GFR 0.91 MG/DL (0.55-1.30); GLOMERULAR FILTRATION RATE > 60.0 (>51); TOTAL PROTEIN 8.1 GM/DL (6.4-8.2)
== END ==
LOC: M LAB REF 11:59
PROVIDERS: ATTEND Internal Medicine Gastroenterology
DX: C20 Malignant neoplasm of rectum (principal); K62.5 Hemorrhage of anus and rectum

== ENCOUNTER → 2020-10-25 | Outpatient (CLI) | payer BC ==
--- NOTE | 2020-10-25 10:29 | RADONC.CN ---
Radiation Oncology Hx/Consult Radiation Oncology Consult Date of Service: Oct 25, 2020 Pt Identifier Dee Shirley is a 59 year old female with a recently diagnosed [id number] low rectal adenocarcinoma. She is s/p EUS and biopsy with Dr. Howell on 10/15/20 and is seen today for consideration of neoadjuvant chemoradiation. Diagnosis/Treatment History Oncologic History 2018: Developed intermittent scant rectal bleeding. This was initially thought due to diabetes medication but persisted. Late 2019: Developed intermittent rectal pain with bleeding, had a well-woman visit and a screening colonoscopy was ordered as she was due. 09/30/20: Colonoscopy with distal rectal mass @ 3 cm from verge, biopsy indeterminate but suggestive of adenocarcinoma She was referred to Dr. Howell who repeated colonoscopy and performed biopsy and EUS on 10/15/20. Showed a cT3N1 lesion with biopsy returning adenocarcinoma without MSI. MRI pelvis and CT chest are pending to complete staging. Recent data: 10/15/20 EUS (Dante) Procedure Details: The patient was monitored per endoscopy protocol. The colonoscope was advanced under direct visualization to the rectum. The quality of the colonic preparation was excellent. A careful inspection was made as the colonoscope was withdrawn. At 8 cm there is a mass 75-80% circumferential. Biop[sy taken multiple places. A TRANSRECTAL ULTRASOUND Was then done. This show a T3 lesion and probable nodes. After completion of the examination, the patient was transferred to the recovery room in stable condition. 10/15/20 Pathology Addendum Comment Immunostain results: The tumor cells show intact nuclear expression of PMS2, MLH1, MSH2, and MSH6; which is compatible with low probability of microsatellite instability-high. DIAGNOSIS RECTUM, MASS, BIOPSY: MODERATELY DIFFERENTIATED INVASIVE ADENOCARCINOMA. Note: Immunostains to assess microsatellite status will be reported in an addendum. Interval History Dee feels generally well. She has preserved appetite and stable weight. Her pain is intermittent, aching and associated with bowel movements. She has some BRBPR when she defecates, this is not copious. 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 She expressed some confusion with regard to the plan for and goals of treatment. Past Medical History: DMII GERD Past Surgical History: C section 1984 Cholecystectomy Family History: No significant family cancer history Social History: Never smoker Drinks 1-2 alcoholic beverages ~ 3 days per week Allergies / Meds Allergies: Coded Allergies: No Known Allergies (Unverified , 10/22/20) Home Meds Reported Medications Vit D3-Vit K/Berberine/Hops (Ostera Tablet) 1 Each Tablet, 1 TAB PO, TAB 10/22/20 Vitamin E Acetate (Vitamin E) 1,000 Unit Capsule, 1 CAP PO QAM for 30 Days, #30 CAP 10/22/20 Aspirin (Aspirin) 81 Mg Tab.chew, 1 TAB PO DAILY for pain for 30 Days, #30 TAB 10/22/20 Dicyclomine HCl (Dicyclomine HCl) 20 Mg Tablet, 1 TAB PO TID for irritable bowel symptoms for 10 Days, #30 TAB 10/22/20 Sitagliptin Phosphate (Januvia) 100 Mg Tablet 09/23/20 Glipizide (Glipizide ER) 10 Mg Tab.er.24 09/23/20 Famotidine (Famotidine) 40 Mg Tablet 09/23/20 Review of Systems General: Reports: Normal Appetite Constitutional: Denies: Chills, Fever, Night Sweats Eyes: Denies: Pain, Vision change HEENT: Denies: Head Aches, Dysphagia, Sore Throat Skin: Denies: Rash, Lesions, Bruising Pulmonary: Denies: Dyspnea, Cough Cardiovascular: Denies: Chest Pain, Palpitations, Edema Gastrointestinal: Reports: Hematochezia; Denies: Nausea, Vomiting, Abdominal Pain, Diarrhea Genitourinary: Denies: Dysuria, Frequency, Incontinence Hematologic: Denies: Bruising, Petecchia, Enlarged Lymph Nodes Musculoskeletal: Denies: Neck pain, Back pain Neurological: Denies: Weakness, Numbness, Incoordination Psych: Reports: Mood Normal; Denies: Memory Issues, Thoughts of Self Harm Vital Signs Ht 62" Wt 202 lbs BMI 37 T 98 P 97 RR 20 BP138/82 O2 100% Pain 0 Fatigue 0 General Exam: Positive: Alert, Cooperative, No Acute Distress Eye Exam: Positive: PERRLA, EOMI ENT EXAM: Positive: Mucous membr. moist/pink, Pharynx Normal Neck Exam: Negative: Thyromegaly, Lymphadenopathy Chest Exam: Positive: Normal air movement; Negative: Rales, Rhonchi, Wheezing Heart Exam: Positive: Rate Normal, Regular Rhythm Abdomen Exam: Positive: Soft; Negative: Tenderness, Mass Extremity Exam: Negative: Edema, Tenderness Skin Exam: Positive: Nl turgor and temperature; Negative: Rash Neuro Exam: Positive: Normal Gait, Normal Speech, Cranial Nerves 3-12 NL Psych Exam: Positive: Mental status NL, Mood NL, Memory Intact Other Physical Findings Rectal exam: There is a palpable mass in the posterior rectal wall proximal to the anal sphincter ~ 3-4 cm from the anal verge. I am unable to feel the most proximal portion of the lesion. It is not tender. There is no bloody return on the glove tip. Diagnostic and Laboratory Diagnostic Review Radiologic images, relevant labs and pathology reports were personally reviewed and discussed with Ms. Shirley. Assessment and Plan Impression Ms. Shirley is a 59 year old female with a recently diagnosed [id number] low rectal adenocarcinoma. She is s/p EUS and biopsy with Dr. Howell on 10/15/20 and is seen today for consideration of neoadjuvant chemoradiation. Stage [id number] Stage IIIB adenocarcinoma of the rectum Performance Status ECOG 0 Plan We had an extensive discussion with Ms. Shirley regarding the diagnosis at hand and available therapeutic options. She is an otherwise healthy person without much in the way of symptoms or significant comorbid conditions. She has a palpable low rectal tumor which on EUS was demonstrated to be T3 with concern for involved mesorectal nodes. An MRI is pending, scheduled currently for 11/11/20, which I will attempt to expedite. She also has a pending CT chest, though the probability of metastatic disease is low. Once these staging studies are complete, barring anything unforeseen, she would be appropriate for neoadjuvant chemoradiation. I spent a great deal of time clarifying the pathology, and staging findings to date as well as explaining the relevant points of multidisciplinary management of low rectal cancers. She was appreciative of the thorough discussion. For chemoradiation I recommend 50.4 Gy in 28 fractions with concurrent xeloda. I would like to treat her in the prone position to minimize small bowel dose. We discussed the alternative of supine positioning for treatment as adequate but less ideal. I believe, based on available data and my own exam that the lesion is above the sphincter complex/anus and therefore she will not need elective extended matias coverage beyond the classic rectal rosenberg. This will spare her toxicity as well. We discussed the logistics of receiving radiation therapy in detail including the need for a 1-time planning session. I would like for this to occur the week of her staging MRI. We reviewed the side effects of treatment including fatigue, nausea, diarrhea, and skin reaction in the gluteal cleft. After discussing the risks, benefits and alternatives to radiation therapy, Ms. Shirley was amenable to pursuing radiotherapy. All questions were answered to the patient's satisfaction. We reviewed that after chemoradiation Dr. Howell would likely evaluate her for surgery which generally occurs 6-8 weeks post completion of neoadjuvant therapy. The possible need for additional chemotherapy after chemoradiation contingent upon response was also discussed. We instructed the patient that if there were any questions,concerns or changes in clinical status in the interim to contact us. Recommendations MRI pelvis and CT chest to complete staging, will attempt to expedite the MRI Pending result of staging studies recommend neoadjuvant chemoradiation 50.4 in 28 fractions with xeloda Simulation week of MRI Billing Statement Total time of [62] minutes was spent preparing for the visit [2], obtaining HPI [5], examining the patient [3], reviewing diagnostic tests [9], discussing management options [30], coordinating care [3], and writing this note [10]. MARSHAL SANABRIA MD Oct 25, 2020 10:29
== END ==
LOC: M ONCR 08:00
PROVIDERS: ATTEND General Practice
DX: C20 Malignant neoplasm of rectum (principal)

== ENCOUNTER → 2020-10-31 | Outpatient (CLI) | payer BC ==
[~2020-10-31] MED LIST changes: +GASTROGRAFIN SOLUTION 30ML (Q9963) As Ordered ONE; +ISOVUE-370 76% 100ML VIAL As Ordered ONE
--- NOTE | 2020-11-02 19:28 | REP ---
INDICATION: RECTAL ULCERATED MASS, CANCER STAGING COMPARISON: None TECHNIQUE: Axial contrast enhanced images from the thoracic inlet to the upper abdomen using 100 ml Isovue 370 intravenous contrast material followed by CT of the abdomen and pelvis. Coronal and sagittal reformations obtained. This CT examination was performed using the following dose reduction techniques: Automated exposure control, adjustment of mA and/or kv according to the patient's size, and use of iterative reconstruction technique. FINDINGS: Lung rosenberg are relatively well aerated with minimal chronic appearing interstitial changes. No focal consolidation, significant nodule, or mass lesion. No pleural effusion. No pneumothorax. Tracheobronchial tree is patent. Mediastinum demonstrates normal thoracic aorta, pulmonary vasculature, and heart/pericardium. No obvious significant mediastinal or hilar adenopathy. Surrounding musculoskeletal structures without acute osseous abnormality. IMPRESSION: Essentially normal contrast-enhanced chest CT. No acute mediastinal or pleuroparenchymal process. <Electronically signed by Jimy Scott > 11/02/201923
--- NOTE | 2020-11-02 19:33 | REP ---
INDICATION: RECTAL ULCERATED MASS, CANCER STAGING. COMPARISON: None TECHNIQUE: Axial contrast-enhanced images from the lung bases to the pubic symphysis using oral and 100 cc Isovue 370 intravenous contrast material. Delayed images of the abdomen along with coronal and sagittal reformations obtained. This CT examination was performed using the following dose reduction techniques: Automated exposure control, adjustment of mA and/or kv according to the patient's size, and the use of iterative reconstruction technique. FINDINGS: Liver demonstrates mild fatty infiltration without focal hepatic lesion identified. Spleen, pancreas, bilateral adrenal glands and kidneys are normal. Patient is status post cholecystectomy. There is no evidence for bowel obstruction. Scattered colonic diverticula noted without acute diverticulitis. There is somewhat irregular mucosal thickening involving the rectosigmoid which may be related to the given history of ulcerated mass (series 205; images 103-117). Few nonspecific adjacent lymph nodes in the deep pelvis measure up to 6 mm. No adjacent significant stranding or fluid identified. Remainder of the small and large bowel is grossly unremarkable. Pelvis demonstrates normal bladder and age-appropriate uterus/adnexa. No ascites. No free air. Abdominal aorta and vasculature appear normal. Musculoskeletal structures are intact and without acute osseous abnormality. IMPRESSION: 1. Somewhat irregular mucosal thickening involving the rectosigmoid colon. Small adjacent nonspecific lymph nodes measure up to 6 mm short axis diameter. No associated significant inflammatory stranding or fluid. 2. Remainder of the examination is relatively normal. <Electronically signed by Jimy Scott > 11/02/201929
== END ==
LOC: M RAD 14:19
PROVIDERS: ATTEND Specialist
DX: K62.6 Ulcer of anus and rectum (principal)
CPT/HCPCS: 71260; 74177; Q9963; Q9967

== ENCOUNTER → 2020-10-31 | Outpatient (CLI) | payer BC ==
[~2020-10-31] MED LIST changes: -GASTROGRAFIN SOLUTION 30ML (Q9963) As Ordered ONE; -ISOVUE-370 76% 100ML VIAL As Ordered ONE
[2020-10-31 18:27] LABS: BLOOD UREA NITROGEN 12 MG/DL (7-18); CREATININE FOR GFR 0.81 MG/DL (0.55-1.30); GLOMERULAR FILTRATION RATE > 60.0 (>51)
== END ==
LOC: M LAB 16:20
PROVIDERS: ATTEND Surgery
DX: R94.4 Abnormal results of kidney function studies (principal)

== ENCOUNTER → 2020-11-05 | Outpatient (CLI) | payer BC ==
[~2020-11-05] MED LIST changes: +XELO1TAB PO
--- NOTE | 2020-11-05 13:03 | REP ---
INDICATION: RECTAL CA. COMPARISON: CT 10/31/2020. TECHNIQUE: Multiple sequences obtained in the axial, coronal and sagittal planes prior to and following the intravenous administration of 17 mL ProHance. FINDINGS: A circumferential mass is again noted of the mid to superior rectum. This appears to narrow the lumen. This begins approximately 8.5 cm from the anal verge. It extends for a length of approximately 6.5 cm. The superior extent is at approximately the junction of the 2nd and 3rd sacral segments. The external margins of the mass are irregular and there is perirectal soft tissue stranding and enhancement locally, which may represent some degree of a neoplastic infiltration of the immediate perirectal soft tissues. This is most consistent with a stage T3 tumor. I do not see evidence of extension to the mesorectal fascia. No significant adenopathy is seen in the pelvis. However, several subcentimeter perirectal lymph nodes are present. There is no free fluid. The uterus is deviated to the left of midline with a length of 8.5 cm. Multiple fibroids are seen in the myometrium. The largest are in the right uterine body measuring 3 cm in diameter and indenting the posterior bladder, and a posterior fundal fibroid measuring 3.1 cm in diameter. The endometrium is not well-defined. The ovaries demonstrate no mass. Visualized osseous structures demonstrate no abnormal marrow signal or enhancement. IMPRESSION: Irregular circumferential mass of the mid to superior rectum as discussed in detail above. There are characteristics most consistent with a stage T3 tumor. No significantly enlarged lymph nodes. Several subcentimeter perirectal lymph nodes are present. Fibroid uterus. <Electronically signed by Hussain Chacon > 11/05/20 1724
== END ==
LOC: M RAD 09:25
PROVIDERS: ATTEND Surgery
DX: D37.5 Neoplasm of uncertain behavior of rectum (principal)

== ENCOUNTER → 2020-11-13 | Outpatient (RCR) | payer BC | LOC: M ONCR 13:20 | PROVIDERS: ATTEND General Practice | DX: C20 Malignant neoplasm of rectum (principal) ==

== ENCOUNTER → 2020-12-13 | Outpatient (RCR) | payer BC ==
[~2020-12-13] MED LIST changes: +COVI100V IM; +VITA-175 PO; -VITA100021 PO
== END ==
LOC: M ONCR 11-15 14:17
PROVIDERS: ATTEND General Practice
DX: C20 Malignant neoplasm of rectum (principal)

== ENCOUNTER 2021-01-02 07:54 | Outpatient (RCR) | payer BC ==
[~2021-01-02 07:54] MED LIST changes: +ANUS2.5C2 TOP; +LIDO1CRE2 TOP; +OXYC-517 PO
[2021-01-02] MEDS ORDERED: XELO1TAB PO (09:15)
== END 2021-01-13 ==
LOC: M ONCR 07:54
PROVIDERS: ATTEND General Practice
DX: C20 Malignant neoplasm of rectum (principal)

== ENCOUNTER → 2021-01-10 | Outpatient (CLI) | payer BC ==
--- NOTE | 2021-01-10 09:28 | RADENCPD ---
Date/Time of Encounter Date of Encounter: January 10, 2021 Time of Encounter: 09:25 Encounter Saw Dee today as she has been having some BRBPR with BMs. Intermittent, sometimes blood on the wipe sometimes drops of blood in the bowl. No pain. Her diarrhea has subsided completely no longer taking imodium. She has been taking the oxycodone <1 time per day. Her BMs have been variably hard and small to soft. On exam she has a hemorrhoid @ 5:00 internal, not prolapsed. I recommend she start colace BID and reintroduce some fiber in her diet now that diarrhea has subsided. Bulking her stool should be helpful. She should also avoiding straining during BMs and try to offload pressure on her anus while at work by sitting on a cushion. She agreed to try the above. MARSHAL SANABRIA MD January 10, 2021 09:28
== END ==
LOC: M ONCR 09:01
PROVIDERS: ATTEND General Practice
DX: C20 Malignant neoplasm of rectum (principal)

== ENCOUNTER → 2021-04-24 | Outpatient (CLI) | payer BC ==
[~2021-04-24] MED LIST changes: +DEXTROSE 50% 50 ML SYRINGE As Ordered ONE; +HumaLOG INSULIN (NovoLOG) PER UNIT SC ONE; +LIDO1CRE42 TOP; +LIDOCAINE 1% MDV 20ML VIAL As Ordered ONE; +MIDAZOLAM INJ 2MG/2ML VIAL (J2250 PER 1MG) As Ordered ONE; +NS 1,000 ML IV SCH; +ONDA8TAB10 PO; +PROC10TA4 PO; +ceFAZolin 1GM VIAL (J0690 PER 500MG) As Ordered ONE; +ceFAZolin SOD 2 GM in IV 1 EA IV ONE; +diphenhydrAMINE 50MG/ML VIAL (J1200) As Ordered ONE; +fentaNYL 100 MCG/2 ML INJECTION (J3010) As Ordered ONE
[2021-04-24] MEDS: ceFAZolin SOD 1 GM in D5W MINI-BAG PLUS 50 ML IV SCH ×2 (15:17→15:18)
--- NOTE | 2021-04-24 15:33 | IRHP ---
[facility] IR Pre-Procedure H & P General Date of Service: Apr 24, 2021 Procedure: Same Day Surgery Interval History and Physical I have seen the patient and reviewed last H & P performed within 30 days. There is no significant interval change. History of Present Illness Chief Complaint The patient is a 60-year-old female admitted with a reason for visit of Rectal Ca. PRE-PROCEDURE DIAGNOSIS: Rectal cancer HEART: Normal rate. LUNGS: Normal breathing at rest. Low blood sugar prior to procedure BG 65. Patient is diabetic. Patient treated for hypoglycemia prior to procedure. ASA Classification ASA Classification: III-Severe systemic dis. Mallampati Score: II NPO: Yes Problems with prior sedation: No Obstructive Sleep Apnea: No Plan moderate sedation Allergies Coded Allergies: No Known Allergies (Unverified , 10/22/20) Home Medications Scheduled Aspirin (Aspirin), 1 TAB PO DAILY, (Reported) Capecitabine (Xeloda), 2,000 MG PO BID Vitamin E Acetate (Vitamin E), 1 CAP PO QAM, (Reported) Scheduled PRN Ondansetron HCl (Ondansetron HCl), 4 MG PO Q6H PRN for NAUSEA OR VOMITING Prochlorperazine Maleate (Prochlorperazine Maleate), 10 MG PO Q6H PRN for NAUSEA OR VOMITING Miscellaneous Medications Covid-19 Vacc,Mrna(Moderna)/Pf (Moderna Covid19 Vacc(Unapprov)), 100 MCG IM, (Re ported) Famotidine (Famotidine), (Reported) Glipizide (Glipizide ER), (Reported) Sitagliptin Phosphate (Januvia), (Reported) Vit D3-Vit K/Berberine/Hops (Ostera Tablet), 1 TAB PO, (Reported) Discontinued Medications Dicyclomine HCl (Dicyclomine HCl), 1 TAB PO TID, (Reported) Discontinued Reason: Pt states not taking Hydrocortisone (Anusol-Hc), 1 APLCT TOP BID Discontinued Reason: Pt states not taking Lidocaine (Lidocaine), 1 APLCT TOP TID Discontinued Reason: Pt states not taking VS, I&O, 24H, Fishbone Vital Signs/I&O Vital Signs Date Time Temp Pulse Resp B/P (MAP) Pulse Ox O2 Delivery O2 Flow Rate FiO2 04/24/21 14:25 97.2 85 20 98 Room Air Laboratory Data 24H LABS Laboratory Tests 2 04/24/21 14:30: Lab Scanned Report LAB OTHER ZENOBIA ROTH MD Apr 24, 2021 15:33
[2021-04-24 17:45] VITALS: BP 156/86
--- NOTE | 2021-04-28 12:26 | IRPON ---
IR Postoperative Note Date Of Procedure: Apr 24, 2021 Time Of Procedure: 16:00 IR Postoperative Note IR Ultrasound and fluoroscopy guided port placement IR Ultrasound of the neck. IR Moderate sedation. Clinical indication: Rectal cancer. Physician: Dr. Beltran. Procedure: The patient was advised of the benefits, risks, and alternatives of the procedure and informed consent was obtained. A time-out was performed with verification of the patient's name, MRN, site of procedure and type of procedure to be performed. The patient was positioned in the supine position on the angiographic table. The site was prepped and draped in the usual sterile fashion. Moderate sedation was performed by the physician including the presence of an independent trained RN who assisted and monitored the patient's level of consciousness and physiologic status. Following the administration of fentanyl and Versed , the physician spent 45 minutes of continuous face to face time with the patient. Ultrasound of the neck reveals a patent and compressible right internal jugular vein. A production support developer radiograph reveals no gross abnormality. The neck and anterior chest wall were anesthetized with lidocaine. The right internal jugular vein was accessed using a microintroducer needle under ultrasound guidance, via a lateral approach. An 018 wire was advanced into the superior vena cava, the needle was removed and a microsheath was placed. An Amplatz wire was then passed into the inferior vena cava. An incision at the internal jugular vein access site and anterior chest wall were made using a scalpel. An incision was made at the anterior chest wall. A small pocket was created using a combination of blunt and sharp dissection. A tunneling device was then used to pass the catheter from the pocket to the neck puncture site. An 8- [employer] Smart power port was then positioned in the pocket. The catheter was then measured and cut. The introducer sheath was exchanged for a peel-away sheath. The catheter was passed through the peel-away sheath into the internal jugular vein and the peel-away sheath was removed. The port tip was positioned at the cavoatrial junction. The port was then accessed with a Farris needle. The port flushes and aspirates well. The puncture site in the neck was closed. The chest wall incision was then closed with 2-0 Vicryl and 4-0 Monocryl. Glue and Steri- Strips were applied. A sterile dressing was then applied. The patient tolerated the procedure well and was returned to the PRU in stable condition. Estimated blood loss: <5 ml. Complications: None. Conclusion: 1. Successful placement of an 8-[employer] Smart power port via the right internal jugular vein. The port is ready for immediate use. 2. Patient to follow up in IR clinic in 2 weeks. Thank you for this referral. ZENOBIA BELTRAN MD Apr 28, 2021 12:26
== END ==
LOC: M IRPRO 13:49
PROVIDERS: ATTEND Internal Medicine Hematology & Oncology
DX: C20 Malignant neoplasm of rectum (principal); Z79.82 Long term (current) use of aspirin; Z79.899 Other long term (current) drug therapy
CPT/HCPCS: 36561; 99152; 99153; C1769; C1788; C1894; J0690; J1200; J1642; J1644; J2250; J3010

== ENCOUNTER → 2021-07-02 | Outpatient (CLI) | payer BC ==
[~2021-07-02] MED LIST changes: -DEXTROSE 50% 50 ML SYRINGE As Ordered ONE; -HumaLOG INSULIN (NovoLOG) PER UNIT SC ONE; -LIDOCAINE 1% MDV 20ML VIAL As Ordered ONE; -MIDAZOLAM INJ 2MG/2ML VIAL (J2250 PER 1MG) As Ordered ONE; -NS 1,000 ML IV SCH; +OLAN1TAB16 PO; +POTA20TA6 PO; -ceFAZolin 1GM VIAL (J0690 PER 500MG) As Ordered ONE; -ceFAZolin SOD 2 GM in IV 1 EA IV ONE; -diphenhydrAMINE 50MG/ML VIAL (J1200) As Ordered ONE; -fentaNYL 100 MCG/2 ML INJECTION (J3010) As Ordered ONE
--- NOTE | 2021-07-02 10:46 | RADONC ---
Radiation Oncology Hx/FUP Radiation Oncology Hx/FUP Date of Service: Jul 02, 2021 Pt Identifier Dee Shirley is a 60 year old female seen for a followup visit today at the department of radiation oncology for a history of [id number] low rectal adenocarcinoma. She is s/p EUS and biopsy with Dr. Howell on 10/15/20. She completed chemoradiation 50.4 Gy in 28 fractions with xeloda 11/26/20-01/02/21. She had a CR on repeat endoscopy on 03/26/21 and elected to pursue non-operative management. She is currently receiving CAPEOX chemotherapy and due for cycle 4 on 07/04/21. Diagnosis/Treatment History Oncologic History As above Relevant data: 03/26/21 Rectal biopsy Negative for residual cancer Interval History Dee has ongoing intermittent diarrhea which is manageable. Her main complaint is refractory nausea and loss of appetite. Along with this she is fatigued. It all has worsened with each successive chemotherapy cycle. She is contemplating whether to continue beyond cycle 4 or not. She has zofran on hand and takes this intermittently with some success. She does not tolerate compazine. She has no rectal pain. She is scheduled to see Dr. Howell and Vasiliy later this week. Current Therapy CAPEOX, non-operative protocol Stage [id number] Stage IIIB adenocarcinoma of the rectum Social History: Never smoker Drinks 1-2 alcoholic beverages ~ 3 days per week Allergies / Meds Allergies: Coded Allergies: No Known Allergies (Unverified , 10/22/20) Home Meds Active Scripts Olanzapine (Olanzapine) 5 Mg Tablet, 1 TAB PO DAILY PRN for NAUSEA FROM CHEMO for 30 Days, #30 TAB 2 Refills Prov:MARSHAL SANABRIA MD 07/02/21 Ondansetron HCl (Ondansetron HCl) 8 Mg Tablet, 4 MG PO TID, #90 TAB 2 Refills Prov:MARSHAL SANABRIA MD 07/02/21 Lidocaine/Prilocaine (Lidocaine-Prilocaine Cream) 2.5%/2.5% Cream..g., 1 DOSE TOP ASDIRECTED, #30 GRAMS 1 Refill Apply dime size to port area. Do not rub in, cover with saran wrap to protect clothing. Prov:RAF LOPEZ MDFRCP 05/01/21 Prochlorperazine Maleate (Prochlorperazine Maleate) 10 Mg Tablet, 10 MG PO Q6H PRN for NAUSEA OR VOMITING, #20 TAB 1 Refill Prov:LOPEZRAF 05/01/21 Capecitabine (Xeloda) 500 Mg Tablet, 2000 MG PO BID, #84 TAB 6 Refills TAKE 4 TABLETS TWICE DAILY 14 days with 7 days off . To begin on the day of Oxaliplatin treatment Prov:RAF LOPEZCP 04/11/21 Reported Medications Covid-19 Vacc,Mrna(Moderna)/Pf (Moderna Covid19 Vacc(Unapprov)) 100 Mcg/0.5 Ml Vial, 100 MCG IM, VIAL 11/29/20 Vit D3-Vit K/Berberine/Hops (Ostera Tablet) 1 Each Tablet, 1 TAB PO, TAB 10/22/20 Vitamin E Acetate (Vitamin E) 1,000 Unit Capsule, 1 CAP PO QAM for 30 Days, #30 CAP 10/22/20 Aspirin (Aspirin) 81 Mg Tab.chew, 1 TAB PO DAILY for pain for 30 Days, #30 TAB 10/22/20 Sitagliptin Phosphate (Januvia) 100 Mg Tablet 09/23/20 Glipizide (Glipizide ER) 10 Mg Tab.er.24 09/23/20 Famotidine (Famotidine) 40 Mg Tablet 09/23/20 Review of Systems Review of Systems Constitutional: Reports: Fatigue, Weight Loss Eyes: Denies: Pain HEENT: Denies: Head Aches Skin: Denies: Rash Pulmonary: Denies: Dyspnea Gastrointestinal: Reports: Nausea, Vomiting, Diarrhea; Denies: Abdominal Pain, Hematochezia Neurological: Denies: Weakness, Numbness Psych: Reports: Mood Normal Physical Examination Vital Signs Wt 189 lbs P 112 RR 18 BP 114/58 O2 100% Pain 0 Fatigue 2 General Exam: Alert, Cooperative, No Acute Distress Eye Exam: PERRLA, EOMI ENT EXAM: Atraumatic Neck Exam: Supple Chest Exam: Clear to auscultation Heart Exam: Rate Normal Abdomen Exam: Soft; Negative: Tenderness Extremity Exam: Negative: Edema Skin Exam: Nl turgor and temperature Neuro Exam: Normal Gait, Normal Speech, Cranial Nerves 3-12 NL Psych Exam: Mental status NL Diagnostic and Laboratory Diagnostic Review Radiologic images, relevant labs and pathology reports were personally reviewed and discussed with Ms. Shirley. Assessment and Plan Impression Assessment Ms. Shirley is a 60 year old female with a history of [id number] low rectal adenocarcinoma. She is s/p EUS and biopsy with Dr. Howell on 10/15/20. She completed chemoradiation 50.4 Gy in 28 fractions with xeloda 11/26/20-01/02/21. She had a CR on repeat endoscopy on 03/26/21 and elected to pursue non-operative management. She is currently receiving CAPEOX chemotherapy and due for cycle 4 on 07/04/21. She has a cCR on March. She continues on the non-operative management pathway for her rectal cancer but is struggling mightily with chemotherapy induc ed appetite loss and nausea. For this I encouraged her to take zofran TID scheduled. I will also prescribe olazapine 5 mg daily PRN for refractory nausea, I counseled her that this medication is potent and is also an appetite stimulant but it can be sedating. With respect to follow up she continues chemotherapy for now, and sees Dr. Howell later this week. I will see her again in 4 months time, at which point she will have completed chemotherapy, I would obtain body scans at that time. Performance Status ECOG 1 Plan Follow up in 4 months Zofran TID scheduled Olazapine 5 mg daily PRN for refractory chemo-induced nausea Ms. Shirley was encouraged to call with questions or concerns in the interim period. Billing Statement Total time of [32] minutes was spent preparing for the visit [2], obtaining HPI [6], examining the patient [2], reviewing diagnostic tests [4], discussing management options [7], coordinating care [3], and writing this note [8]. MARSHAL SANABRIA MD Jul 02, 2021 10:46
== END ==
LOC: M ONCR 09:28
PROVIDERS: ATTEND General Practice
DX: C20 Malignant neoplasm of rectum (principal); R11.0 Nausea; Z79.899 Other long term (current) drug therapy; Z92.3 Personal history of irradiation; Z92.21 Personal history of antineoplastic chemotherapy

== ENCOUNTER → 2021-10-20 | Outpatient (CLI) | payer BC ==
[~2021-10-20] MED LIST changes: -DICY20TA11 PO; +DICY20TA20 PO; -FAMO40TA3; +FAMO40TA3 PO; -GLIP10TA18; +GLIP10TA18 PO; -JANU100T; +JANU100T PO; +LACT20EL PO; +ONDA-84 PO; -ONDA8TAB10 PO; +POTA-151 PO; -POTA20TA6 PO; -PROC10TA4 PO; +PROC10TA5 PO; +PROHANCE 279.3MG/ML 15ML VIAL ONE; +PROHANCE 279.3MG/ML 5ML VIAL ONE; +TORS10TA3 PO
== END ==
LOC: M PLAIMG 10:54
PROVIDERS: ATTEND Internal Medicine Hematology & Oncology
DX: C20 Malignant neoplasm of rectum (principal)

== ENCOUNTER → 2021-10-29 | Outpatient (CLI) | payer BC ==
[~2021-10-29] MED LIST changes: -PROHANCE 279.3MG/ML 15ML VIAL ONE; -PROHANCE 279.3MG/ML 5ML VIAL ONE; +VITA100093 PO
== END ==
LOC: M ONCR 08:01
PROVIDERS: ATTEND General Practice
DX: C20 Malignant neoplasm of rectum (principal); Z92.21 Personal history of antineoplastic chemotherapy; Z92.3 Personal history of irradiation

== ENCOUNTER → 2021-10-30 | Outpatient (CLI) | payer BC | LOC: M LABSMTC 10:45 | PROVIDERS: ATTEND Anesthesiology | DX: Z01.818 Encounter for other preprocedural examination (principal); Z11.52 Encounter for screening for COVID-19 ==

== ENCOUNTER 2021-11-04 07:16 | Day surgery (SDC) | payer BC ==
[~2021-11-04] VITALS: Ht 154.9 cm; Wt 90.3 kg
[~2021-11-04 07:16] MED LIST changes: +LIDOCAINE 2% 100MG/5ML SDV (FOR ANES.) As Ordered ONE; +NS 1,000 ML IV ONE; +propofoL 200 MG/20 ML VIAL As Ordered ONE
[2021-11-04 09:15] VITALS: BP 139/73
== END 2021-11-04 09:25 | disposition home or self-care (01) ==
LOC: M OPP 07:16
PROVIDERS: ATTEND Internal Medicine Gastroenterology
DX: Z12.11 Encounter for screening for malignant neoplasm of colon (principal); Z85.038 Personal history of other malignant neoplasm of large intestine; K64.8 Other hemorrhoids; K63.5 Polyp of colon; K57.30 Diverticulosis of large intestine without perforation or abscess without bleeding

== ENCOUNTER → 2021-11-11 | Outpatient (POV) | payer BC ==
[~2021-11-11] VITALS: Ht 154.9 cm; Wt 90.0 kg
[~2021-11-11] MED LIST changes: -LIDOCAINE 2% 100MG/5ML SDV (FOR ANES.) As Ordered ONE; -NS 1,000 ML IV ONE; -propofoL 200 MG/20 ML VIAL As Ordered ONE
[2021-11-11 09:35] VITALS: BP 156/84
== END ==
LOC: M IRPOV 09:30
PROVIDERS: ATTEND Radiology Diagnostic Radiology
DX: Z45.2 Encounter for adjustment and management of vascular access device (principal)

== ENCOUNTER → 2021-11-17 | Outpatient (CLI) | payer BC ==
[~2021-11-17] MED LIST changes: +LIDOCAINE 1% MDV 20ML VIAL As Ordered ONE; +MIDAZOLAM INJ 2MG/2ML VIAL (J2250 PER 1MG) As Ordered ONE; +NS 1,000 ML IV SCH; +ceFAZolin 2 GM/D5W 50 ML IV BAG (J0690 PER 500MG) As Ordered ONE; +ceFAZolin SOD 2 GM in IV 1 EA IV ONE; +diphenhydrAMINE 50MG/ML VIAL (J1200) As Ordered ONE; +fentaNYL 100 MCG/2 ML INJECTION As Ordered ONE
[2021-11-17 15:30] VITALS: BP 160/84
== END ==
LOC: M IRPRO 11:51
PROVIDERS: ATTEND Radiology Diagnostic Radiology
DX: Z45.2 Encounter for adjustment and management of vascular access device (principal); C18.9 Malignant neoplasm of colon, unspecified
CPT/HCPCS: 36590; 99152; 99153; J0690; J1200; J1644; J2250; J3010

== ENCOUNTER → 2021-11-25 | Outpatient (CLI) | payer BC ==
[~2021-11-25] MED LIST changes: -LIDOCAINE 1% MDV 20ML VIAL As Ordered ONE; -MIDAZOLAM INJ 2MG/2ML VIAL (J2250 PER 1MG) As Ordered ONE; -NS 1,000 ML IV SCH; -ceFAZolin 2 GM/D5W 50 ML IV BAG (J0690 PER 500MG) As Ordered ONE; -ceFAZolin SOD 2 GM in IV 1 EA IV ONE; -diphenhydrAMINE 50MG/ML VIAL (J1200) As Ordered ONE; -fentaNYL 100 MCG/2 ML INJECTION As Ordered ONE
[2021-11-25 10:56] LABS: BASO # 0.1 10^3/uL (0.0-0.2); BASO % 0.9 % (0.0-1.0); EOS # 0.2 10^3/uL (0.0-0.5); EOS % 3.1 % (0.0-3.0); HEMATOCRIT 40.5 % (36.0-47.0); HEMOGLOBIN 13.5 g/dl (12.0-15.5); LYMPH # 0.8 10^3/uL (1.5-5.0); LYMPH % 14.4 % (24.0-44.0); MEAN CORPUSCULAR HEMOGLOBIN 29.4 pg (27.0-33.0); MEAN CORPUSCULAR HGB CONC 33.3 g/dl (32.0-36.5); MEAN CORPUSCULAR VOLUME 88.2 fl (80.0-96.0); MONO # 0.5 10^3/uL (0.0-0.8); NEUTROPHILS # 4.2 10^3/uL (1.5-8.5); NEUTROPHILS % 72.3 % (36.0-66.0); PLATELET COUNT, AUTOMATED 256 10^3/uL (150-450); RED BLOOD COUNT 4.59 10^6/uL (4.00-5.40); WHITE BLOOD COUNT 5.8 10^3/uL (4.0-10.0)
[2021-11-25 11:15] LABS: HEMOGLOBIN A1c 7.1 %
[2021-11-25 11:30] LABS: ALBUMIN 4.1 GM/DL (3.2-5.2); ALT/SGPT 42 U/L (12-78); BILIRUBIN,TOTAL 0.4 MG/DL (0.2-1.0); BLOOD UREA NITROGEN 14 MG/DL (7-18); CALCIUM LEVEL 9.7 MG/DL (8.8-10.2); CARBON DIOXIDE LEVEL 28 MEQ/L (21-32); CHLORIDE LEVEL 109 MEQ/L (98-107); CHOLESTEROL LEVEL 236 MG/DL (<200); CHOLESTEROL RISK RATIO 3.868 (<5); CREATININE FOR GFR 0.87 MG/DL (0.55-1.30); FREE T4 0.72 NG/DL (0.76-1.46); GLOMERULAR FILTRATION RATE > 60.0 (>45); GLUCOSE, FASTING 160 MG/DL (70-100); HDL CHOLESTEROL 61 MG/DL (>40); LDL CHOLESTEROL 151 MG/DL (<100); NON-HDL-C 175 MG/DL; POTASSIUM SERUM 4.8 MEQ/L (3.5-5.1); SODIUM LEVEL 141 MEQ/L (136-145); TOTAL PROTEIN 7.5 GM/DL (6.4-8.2); TRIGLYCERIDES LEVEL 121 MG/DL (<150)
[2021-11-25 11:32] LABS: TOTAL 25(OH) VITAMIN D 23.9 NG/ML (30.0-100.0)
[2021-11-25 11:34] LABS: CREATININE, URINE 82.1 MG/DL; MAU/CREAT RATIO 7.3 MCG/MG (0.0-30.0)
== END ==
LOC: M PLALAB 07:36
PROVIDERS: ATTEND Physician Assistant
DX: E78.2 Mixed hyperlipidemia (principal); E11.9 Type 2 diabetes mellitus without complications; E55.9 Vitamin D deficiency, unspecified; K21.9 Gastro-esophageal reflux disease without esophagitis

== ENCOUNTER → 2021-12-02 | Outpatient (POV) | payer BC ==
[~2021-12-02] VITALS: Ht 154.9 cm; Wt 90.9 kg
[2021-12-02 09:00] VITALS: BP 138/82
== END ==
LOC: M IRPOV 08:56
PROVIDERS: ATTEND Radiology Diagnostic Radiology
DX: Z45.2 Encounter for adjustment and management of vascular access device (principal)

== ENCOUNTER → 2022-01-23 | Outpatient (CLI) | payer BC ==
[~2022-01-23] MED LIST changes: +GASTROGRAFIN SOLUTION 30ML (Q9963) As Ordered ONE; +ISOVUE-370 76% 100ML VIAL As Ordered ONE
== END ==
LOC: M RAD 09:59
PROVIDERS: ATTEND Internal Medicine Hematology & Oncology
DX: C20 Malignant neoplasm of rectum (principal)

== ENCOUNTER → 2022-05-01 | Outpatient (CLI) | payer BC ==
[~2022-05-01] MED LIST changes: -GASTROGRAFIN SOLUTION 30ML (Q9963) As Ordered ONE; -ISOVUE-370 76% 100ML VIAL As Ordered ONE
== END ==
LOC: M ONCR 08:34
PROVIDERS: ATTEND General Practice
DX: Z08 Encounter for follow-up examination after completed treatment for malignant neoplasm (principal); Z85.040 Personal history of malignant carcinoid tumor of rectum; K64.9 Unspecified hemorrhoids; R19.4 Change in bowel habit; Z79.82 Long term (current) use of aspirin; Z79.84 Long term (current) use of oral hypoglycemic drugs; Z79.899 Other long term (current) drug therapy; Z92.21 Personal history of antineoplastic chemotherapy; Z92.3 Personal history of irradiation

== ENCOUNTER → 2022-05-26 | Outpatient (CLI) | payer BC ==
[~2022-05-26] MED LIST changes: +VITA400T26 PO
[2022-05-26 11:10] LABS: BASO # 0.1 10^3/uL (0.0-0.2); BASO % 0.6 % (0.0-1.0); EOS # 0.2 10^3/uL (0.0-0.5); EOS % 2.7 % (0.0-3.0); HEMATOCRIT 43.9 % (36.0-47.0); HEMOGLOBIN 14.3 g/dl (12.0-15.5); LYMPH # 1.4 10^3/uL (1.5-5.0); LYMPH % 18.4 % (24.0-44.0); MEAN CORPUSCULAR HEMOGLOBIN 29.1 pg (27.0-33.0); MEAN CORPUSCULAR HGB CONC 32.6 g/dl (32.0-36.5); MEAN CORPUSCULAR VOLUME 89.4 fl (80.0-96.0); MONO # 0.6 10^3/uL (0.0-0.8); MONO % 7.1 % (2.0-8.0); NEUTROPHILS # 5.4 10^3/uL (1.5-8.5); NEUTROPHILS % 70.6 % (36.0-66.0); PLATELET COUNT, AUTOMATED 305 10^3/uL (150-450); RED BLOOD COUNT 4.91 10^6/uL (4.00-5.40); WHITE BLOOD COUNT 7.7 10^3/uL (4.0-10.0)
[2022-05-26 11:30] LABS: FREE T4 0.76 NG/DL (0.76-1.46); HEMOGLOBIN A1c 7.4 %; THYROID STIMULATING HORMONE 3.79 uIU/ML (0.358-3.740)
[2022-05-26 12:27] LABS: TOTAL 25(OH) VITAMIN D 33.7 NG/ML (30.0-100.0)
== END ==
LOC: M PLALAB 07:25
PROVIDERS: ATTEND Physician Assistant
DX: E11.9 Type 2 diabetes mellitus without complications (principal)

== ENCOUNTER → 2022-08-07 | Outpatient (CLI) | payer BC ==
[~2022-08-07] MED LIST changes: +ISOVUE-370 76% 100ML VIAL As Ordered ONE
== END ==
LOC: M RAD 10:59
PROVIDERS: ATTEND Internal Medicine Medical Oncology
DX: C20 Malignant neoplasm of rectum (principal)

== ENCOUNTER 2022-08-18 07:19 | Emergency (ER) | payer BC ==
[~2022-08-18] VITALS: Ht 154.9 cm; Wt 93.2 kg
[~2022-08-18 07:19] MED LIST changes: -ISOVUE-370 76% 100ML VIAL As Ordered ONE
[2022-08-18] MEDS ORDERED: NEXI20CA PO (07:36)
[2022-08-18] MEDS ORDERED: OZEM2INJ (07:36)
[2022-08-18] MEDS ORDERED: PERCOCET 5MG/325MG TAB PO ONE (08:45)
[2022-08-18] MEDS ORDERED: valACYclovir HCL 500 MG TAB PO ONE (08:45)
[2022-08-18] MEDS ORDERED: CYCLOBENZAPRINE 10MG TABLET PO ONE (08:45)
[2022-08-18] MEDS ORDERED: VALA1TAB5 PO (11:16)
[2022-08-18] MEDS ORDERED: CYCL5TAB PO (11:16)
[2022-08-18 11:45] VITALS: BP 141/92
== END 2022-08-18 12:08 | disposition home or self-care (01) ==
LOC: M ED 07:19
DX: S29.011A Strain of muscle and tendon of front wall of thorax, initial encounter (principal); B02.9 Zoster without complications; E11.9 Type 2 diabetes mellitus without complications; C18.9 Malignant neoplasm of colon, unspecified; K21.9 Gastro-esophageal reflux disease without esophagitis; F10.10 Alcohol abuse, uncomplicated; Z87.442 Personal history of urinary calculi; Z92.21 Personal history of antineoplastic chemotherapy; Y92.009 Unspecified place in unspecified non-institutional (private) residence as the place of occurrence of the external cause; Y93.H1 Activity, digging, shoveling and raking; Y99.9 Unspecified external cause status; Z79.82 Long term (current) use of aspirin; Z79.899 Other long term (current) drug therapy; Z79.84 Long term (current) use of oral hypoglycemic drugs

== ENCOUNTER → 2023-04-06 | Outpatient (CLI) | payer BC ==
[~2023-04-06] MED LIST changes: +CYCL5TAB PO; -LIDO1CRE42 TOP; +LIDO30CR18 TOP; +NEXI20CA PO; +OZEM2INJ; +VALA1TAB5 PO
[2023-04-06 10:54] LABS: CREATININE, URINE 53.7 MG/DL; MALB URINE SIEMENS < 3.0 MG/L; MAU/CREAT RATIO 5.5 MCG/MG (0.0-30.0)
[2023-04-06 10:57] LABS: CHOLESTEROL RISK RATIO 3.72 (<5); HDL CHOLESTEROL 62.3 MG/DL (>40); LDL CHOLESTEROL 122.9 MG/DL (<100); NON-HDL-C 169.7 MG/DL
[2023-04-06 10:58] LABS: FREE T4 0.94 NG/DL (0.89-1.76)
[2023-04-06 10:59] LABS: THYROID STIMULATING HORMONE 2.83 uIU/ML (0.55-4.78)
== END ==
LOC: M PLALAB 08:06
PROVIDERS: ATTEND Family Medicine
DX: E11.9 Type 2 diabetes mellitus without complications (principal); E78.2 Mixed hyperlipidemia; E03.8 Other specified hypothyroidism

== ENCOUNTER → 2023-04-06 | Outpatient (CLI) | payer BC ==
[2023-04-06 10:55] LABS: BLOOD UREA NITROGEN 11 MG/DL (9-23); CALCIUM LEVEL 9.3 MG/DL (8.3-10.6); CARBON DIOXIDE LEVEL 27 MMOL/L (20-31); CHLORIDE LEVEL 104 MMOL/L (98-107); GLOMERULAR FILTRATION RATE > 60.0 (>45); GLUCOSE, FASTING 144 MG/DL (74-106); POTASSIUM SERUM 4.4 MMOL/L (3.5-5.1); SODIUM LEVEL 140 MMOL/L (136-145)
[2023-04-06 10:57] LABS: CARCINOEMBRYONIC ANTIGEN < 2.0 NG/ML (<2.5)
== END ==
LOC: M PLALAB 08:03
PROVIDERS: ATTEND Surgery
DX: C20 Malignant neoplasm of rectum (principal)

== ENCOUNTER → 2023-04-07 | Outpatient (CLI) | payer BC ==
[~2023-04-07] MED LIST changes: +PROHANCE 279.3MG/ML 15ML VIAL As Ordered ONE; +PROHANCE 279.3MG/ML 5ML VIAL As Ordered ONE
== END ==
LOC: M RAD 16:35
PROVIDERS: ATTEND Surgery
DX: C20 Malignant neoplasm of rectum (principal)
CPT/HCPCS: 72197; A9576

== ENCOUNTER → 2023-04-30 | Outpatient (CLI) | payer BC ==
[~2023-04-30] MED LIST changes: -PROHANCE 279.3MG/ML 15ML VIAL As Ordered ONE; -PROHANCE 279.3MG/ML 5ML VIAL As Ordered ONE
== END ==
LOC: M ONCR 07:57
PROVIDERS: ATTEND General Practice
DX: C20 Malignant neoplasm of rectum (principal); Z92.21 Personal history of antineoplastic chemotherapy; Z92.3 Personal history of irradiation; Z71.2 Person consulting for explanation of examination or test findings; Z79.82 Long term (current) use of aspirin; Z79.84 Long term (current) use of oral hypoglycemic drugs; Z79.85 Long-term (current) use of injectable non-insulin antidiabetic drugs; Z79.899 Other long term (current) drug therapy

== ENCOUNTER → 2023-07-22 | Outpatient (CLI) | payer BC ==
[2023-07-22 10:54] LABS: BLOOD UREA NITROGEN 12 MG/DL (9-23); CALCIUM LEVEL 9.8 MG/DL (8.3-10.6); CARBON DIOXIDE LEVEL 29 MMOL/L (20-31); CHLORIDE LEVEL 103 MMOL/L (98-107); CREATININE FOR GFR 0.66 MG/DL (0.55-1.30); GLOMERULAR FILTRATION RATE > 60.0 (>45); GLUCOSE, FASTING 266 MG/DL (74-106); POTASSIUM SERUM 4.7 MMOL/L (3.5-5.1); SODIUM LEVEL 138 MMOL/L (136-145)
[2023-07-22 12:55] LABS: CARCINOEMBRYONIC ANTIGEN < 2.0 NG/ML (<2.5)
== END ==
LOC: M PLALAB 07:27
PROVIDERS: ATTEND Surgery
DX: C20 Malignant neoplasm of rectum (principal)

== ENCOUNTER → 2023-09-01 | Outpatient (REF) | payer BC ==
[2023-09-01 13:59] LABS: APPEARANCE, URINE CLEAR (CLEAR); BACTERIA, URINE AUTO NEGATIVE (NEGATIVE); BILIRUBIN, URINE AUTO NEGATIVE (NEGATIVE); BLOOD, URINE BLOOD NEGATIVE (NEGATIVE); COLOR, URINE YELLOW (YELLOW); GLUCOSE, URINE (UA) AUTO NEGATIVE (NEGATIVE); KETONE, URINE AUTO NEGATIVE (NEGATIVE); LEUKOCYTE ESTERASE, URINE AUTO TRACE (NEGATIVE); NITRITE, URINE AUTO NEGATIVE (NEGATIVE); PROTEIN, URINE AUTO NEGATIVE (NEGATIVE); RBC, URINE AUTO 7 /HPF (0-3); SPECIFIC GRAVITY URINE AUTO 1.015 (1.002-1.035); SQUAMOUS EPITHELIAL CELL UR AU 0 /HPF (0-6); UROBILINOGEN, URINE AUTO 0.2 mg/dL (0.0-2.0); WBC, URINE AUTO 4 /HPF (0-3)
== END ==
LOC: M SFHCPLAZ 13:26
PROVIDERS: ATTEND Physician Assistant Medical
DX: N30.01 Acute cystitis with hematuria (principal)

== ENCOUNTER → 2023-09-14 | Outpatient (CLI) | payer BC ==
[~2023-09-14] MED LIST changes: +GASTROGRAFIN SOLUTION 30ML As Ordered ONE; +ISOVUE-370 76% 100ML VIAL As Ordered ONE
== END ==
LOC: M RAD 12:04
PROVIDERS: ATTEND Nurse Practitioner
DX: C20 Malignant neoplasm of rectum (principal); Z93.2 Ileostomy status; K76.0 Fatty (change of) liver, not elsewhere classified
CPT/HCPCS: 71260; 74177; Q9963; Q9967

== ENCOUNTER → 2023-09-14 | Outpatient (CLI) | payer BC ==
[~2023-09-14] MED LIST changes: -GASTROGRAFIN SOLUTION 30ML As Ordered ONE; -ISOVUE-370 76% 100ML VIAL As Ordered ONE
== END ==
LOC: M ONCR 05-25 08:04
PROVIDERS: ATTEND General Practice
DX: C20 Malignant neoplasm of rectum (principal); Z79.82 Long term (current) use of aspirin; Z79.84 Long term (current) use of oral hypoglycemic drugs; Z79.899 Other long term (current) drug therapy; Z71.2 Person consulting for explanation of examination or test findings; Z92.3 Personal history of irradiation; Z92.21 Personal history of antineoplastic chemotherapy; Z93.3 Colostomy status

== ENCOUNTER → 2023-09-16 | Outpatient (REF) | payer BC ==
[2023-09-16 18:34] LABS: APPEARANCE, URINE HAZY (CLEAR); BACTERIA, URINE AUTO 1+ (NEGATIVE); BILIRUBIN, URINE AUTO NEGATIVE (NEGATIVE); BLOOD, URINE BLOOD 1+ (NEGATIVE); COLOR, URINE YELLOW (YELLOW); GLUCOSE, URINE (UA) AUTO 1+ mg/dL (NEGATIVE); KETONE, URINE AUTO NEGATIVE (NEGATIVE); LEUKOCYTE ESTERASE, URINE AUTO 3+ (NEGATIVE); NITRITE, URINE AUTO NEGATIVE (NEGATIVE); PROTEIN, URINE AUTO NEGATIVE (NEGATIVE); RBC, URINE AUTO 5 /HPF (0-3); SPECIFIC GRAVITY URINE AUTO 1.013 (1.002-1.035); SQUAMOUS EPITHELIAL CELL UR AU 0 /HPF (0-6); UROBILINOGEN, URINE AUTO 0.2 mg/dL (0.0-2.0); WBC, URINE AUTO 147 /HPF (0-3)
== END ==
LOC: M SFHCWAGY 17:02
PROVIDERS: ATTEND Family Medicine
DX: N89.8 Other specified noninflammatory disorders of vagina (principal); R30.0 Dysuria

== ENCOUNTER → 2023-11-17 | Outpatient (CLI) | payer BC ==
[~2023-11-17] MED LIST changes: +CAPE1TAB2 PO; +GASTROGRAFIN SOLUTION 30ML As Ordered ONE; +ONDA8TAB8 PO
== END ==
LOC: M RAD 09:23
PROVIDERS: ATTEND Surgery
DX: C20 Malignant neoplasm of rectum (principal); Z90.49 Acquired absence of other specified parts of digestive tract; Z93.2 Ileostomy status

== ENCOUNTER → 2024-02-01 | Outpatient (CLI) | payer BC ==
[~2024-02-01] MED LIST changes: +ISOVUE-370 76% 100ML VIAL As Ordered ONE; +ONDA-284 PO; -ONDA8TAB8 PO; +PRIL20TA2 PO
== END ==
LOC: M RAD 08:18
PROVIDERS: ATTEND Specialist
DX: C18.9 Malignant neoplasm of colon, unspecified (principal)
CPT/HCPCS: 71260; 74177; Q9963; Q9967

== ENCOUNTER → 2024-02-25 | Outpatient (REF) | payer BC ==
[~2024-02-25] MED LIST changes: -GASTROGRAFIN SOLUTION 30ML As Ordered ONE; -ISOVUE-370 76% 100ML VIAL As Ordered ONE
[2024-03-02 12:16] LABS: HEMOGLOBIN A1c 6.6 % (4.0-6.0)
== END ==
LOC: M SFHCPLAZ 11:37
PROVIDERS: ATTEND Family Medicine
DX: E11.9 Type 2 diabetes mellitus without complications (principal)

== ENCOUNTER → 2024-03-15 | Outpatient (CLI) | payer BC ==
[~2024-03-15] MED LIST changes: +LANTINJ4 SQ
== END ==
LOC: M ONCR 11:24
PROVIDERS: ATTEND General Practice
DX: C20 Malignant neoplasm of rectum (principal); Z92.21 Personal history of antineoplastic chemotherapy; Z92.3 Personal history of irradiation; Z79.82 Long term (current) use of aspirin; Z79.84 Long term (current) use of oral hypoglycemic drugs; Z79.899 Other long term (current) drug therapy; Z90.49 Acquired absence of other specified parts of digestive tract; Z93.3 Colostomy status

== ENCOUNTER → 2024-03-31 | Outpatient (REF) | payer BC | LOC: M SFHCPLAZ 10:00 | PROVIDERS: ATTEND Family Medicine | DX: R35.0 Frequency of micturition (principal) ==

== ENCOUNTER → 2024-04-04 | Outpatient (CLI) | payer BC ==
[2024-04-04 18:28] LABS: BASO % 0.6 % (0.0-1.0); EOS # 0.2 10^3/uL (0.0-0.5); EOS % 2.4 % (0.0-3.0); HEMATOCRIT 40.5 % (36.0-47.0); HEMOGLOBIN 13.4 g/dl (12.0-15.5); LYMPH # 1.5 10^3/uL (1.5-5.0); LYMPH % 23.8 % (24.0-44.0); MEAN CORPUSCULAR HEMOGLOBIN 28.8 pg (27.0-33.0); MEAN CORPUSCULAR HGB CONC 33.1 g/dl (32.0-36.5); MEAN CORPUSCULAR VOLUME 87.1 fl (80.0-96.0); MONO # 0.5 10^3/uL (0.0-0.8); MONO % 7.4 % (2.0-8.0); NEUTROPHILS # 4.1 10^3/uL (1.5-8.5); NEUTROPHILS % 64.7 % (36.0-66.0); PLATELET COUNT, AUTOMATED 308 10^3/uL (150-450); RED BLOOD COUNT 4.65 10^6/uL (4.00-5.40); WHITE BLOOD COUNT 6.4 10^3/uL (4.0-10.0)
[2024-04-04 18:45] LABS: ALBUMIN 4.3 G/DL (3.2-5.2); ALKALINE PHOSPHATASE 113 U/L (46-116); ALT/SGPT 22 U/L (7.0-40); AST/SGOT 19 U/L (<34); BILIRUBIN,TOTAL 0.2 MG/DL (0.3-1.2); BLOOD UREA NITROGEN 12 MG/DL (9-23); CALCIUM LEVEL 9.6 MG/DL (8.3-10.6); CARBON DIOXIDE LEVEL 26 MMOL/L (20-31); CHLORIDE LEVEL 106 MMOL/L (98-107); CREATININE FOR GFR 0.72 MG/DL (0.55-1.30); GLOMERULAR FILTRATION RATE > 60.0 (>45); GLUCOSE, FASTING 204 MG/DL (74-106); SODIUM LEVEL 139 MMOL/L (136-145); TOTAL PROTEIN 7.8 G/DL (5.7-8.2)
== END ==
LOC: M PLALAB 15:31
PROVIDERS: ATTEND Internal Medicine Medical Oncology
DX: C20 Malignant neoplasm of rectum (principal)

== ENCOUNTER → 2024-11-03 | Outpatient (REF) | payer BC ==
[~2024-11-03] MED LIST changes: -CYCL5TAB PO; +CYCL5TAB4 PO; +GABA-1171; +GLIP-320 PO; -GLIP10TA18 PO; -LIDO1CRE2 TOP; +LIDO4CRE12 TOP
[2024-11-03 12:16] LABS: CREATININE, URINE 50.1 MG/DL; MALB URINE SIEMENS < 3.0 MG/L
[2024-11-03 15:01] LABS: HEMOGLOBIN A1c 7.8 % (4.0-6.0)
[2024-11-03 15:04] LABS: BLOOD UREA NITROGEN 13 MG/DL (9-23); CALCIUM LEVEL 9.8 MG/DL (8.3-10.6); CARBON DIOXIDE LEVEL 27 MMOL/L (20-31); CHLORIDE LEVEL 102 MMOL/L (98-107); CHOLESTEROL LEVEL 258 MG/DL (<200); CHOLESTEROL RISK RATIO 3.92 (<5); CREATININE FOR GFR 0.82 MG/DL (0.55-1.30); GLOMERULAR FILTRATION RATE > 60.0 (>45); GLUCOSE, FASTING 173 MG/DL (74-106); HDL CHOLESTEROL 65.8 MG/DL (>40); LDL CHOLESTEROL 148.8 MG/DL (<100); NON-HDL-C 192.2 MG/DL; POTASSIUM SERUM 4.4 MMOL/L (3.5-5.1); SODIUM LEVEL 140 MMOL/L (136-145); TRIGLYCERIDES LEVEL 217 MG/DL (<150)
[2024-11-03 15:09] LABS: THYROID STIMULATING HORMONE 3.727 uIU/ML (0.55-4.78)
[2024-11-03 15:10] LABS: FREE T4 0.87 NG/DL (0.89-1.76)
[2024-11-03 15:11] LABS: TOTAL 25(OH) VITAMIN D 24.7 NG/ML (20.0-100.0)
[2024-11-03 15:16] LABS: VITAMIN B12 LEVEL > 2000 PG/ML (211-911)
== END ==
LOC: M SFHCPLAZ 08:53
PROVIDERS: ATTEND Family Medicine
DX: E11.9 Type 2 diabetes mellitus without complications (principal); E03.8 Other specified hypothyroidism; E55.9 Vitamin D deficiency, unspecified; E78.2 Mixed hyperlipidemia; R20.2 Paresthesia of skin

== ENCOUNTER 2024-12-06 08:45 | Inpatient (IN) | payer BC ==
[~2024-12-06] VITALS: Ht 154.9 cm; Wt 98.4 kg
[~2024-12-06 08:45] MED LIST changes: -GABA-1171; +GABA-1171 PO
[2024-12-06 11:23] LABS: BASO # 0.1 10^3/uL (0.0-0.2); BASO % 0.5 % (0.0-1.0); EOS # 0.1 10^3/uL (0.0-0.5); EOS % 1.3 % (0.0-3.0); HEMATOCRIT 44.5 % (36.0-47.0); HEMOGLOBIN 14.3 g/dl (12.0-15.5); LYMPH # 1.6 10^3/uL (1.5-5.0); MEAN CORPUSCULAR HEMOGLOBIN 26.1 pg (27.0-33.0); MEAN CORPUSCULAR HGB CONC 32.1 g/dl (32.0-36.5); MEAN CORPUSCULAR VOLUME 81.2 fl (80.0-96.0); MONO # 0.5 10^3/uL (0.0-0.8); MONO % 5.8 % (2.0-8.0); NEUTROPHILS % 75.1 % (36.0-66.0); PLATELET COUNT, AUTOMATED 312 10^3/uL (150-450); RED BLOOD COUNT 5.48 10^6/uL (4.00-5.40); WHITE BLOOD COUNT 9.3 10^3/uL (4.0-10.0)
[2024-12-06 11:30] LABS: KETONE, URINE AUTO RFX NEGATIVE (NEGATIVE); LEUKOCYTE ESTERASE UR AUTO RFX NEGATIVE (NEGATIVE); NITRITE, URINE AUTO RFX NEGATIVE (NEGATIVE); RBC, URINE AUTO RFX 1 /HPF (0-3); SQUAM EPITHELIAL CELL UR AURFX 0 /HPF (0-6); WBC, URINE AUTO RFX 1 /HPF (0-3)
[2024-12-06] MEDS: ONDANSETRON 4MG 2ML VIAL IV ONE (11:32)
[2024-12-06] MEDS: ACETAMINOPHEN *IV* 1,000 MG in IV 1 EA IV ONE (11:32)
[2024-12-06] MEDS: NS (Normal Saline) 0.9% 1,000 ML IV ONE (11:33)
[2024-12-06 11:38] LABS: LIPASE 31 U/L (12-53)
[2024-12-06 11:40] LABS: ALBUMIN 4.1 G/DL (3.2-5.2); ALKALINE PHOSPHATASE 86 U/L (35-104); ALT/SGPT 26 U/L (7.0-40); AST/SGOT 32 U/L (<34); BILIRUBIN,DIRECT < 0.1 MG/DL (<0.4); BILIRUBIN,TOTAL 0.3 MG/DL (0.3-1.2); BLOOD UREA NITROGEN 12 MG/DL (9-23); CALCIUM LEVEL 9.8 MG/DL (8.3-10.6); CARBON DIOXIDE LEVEL 26 MMOL/L (20-31); CHLORIDE LEVEL 102 MMOL/L (98-107); GLOMERULAR FILTRATION RATE > 90.0 (>45); GLUCOSE, FASTING 125 MG/DL (74-106); SODIUM LEVEL 138 MMOL/L (136-145); TOTAL PROTEIN 7.9 G/DL (5.7-8.2)
[2024-12-06] MEDS: GASTROGRAFIN SOLUTION 30ML PO SCH (11:45)
[2024-12-06] MEDS ORDERED: ISOVUE-370 76% 100ML VIAL As Ordered ONE (13:06)
[2024-12-06] MEDS ORDERED: NEXI1CAP4 PO (15:39)
[2024-12-06] MEDS ORDERED: ONDA-83 PO (15:39)
[2024-12-06] MEDS ORDERED: HYOS0.3723 PO (15:39)
[2024-12-06] MEDS ORDERED: ALIG4CAP3 PO (15:40)
[2024-12-06] MEDS ORDERED: THERTAB52 PO (15:40)
[2024-12-06] MEDS ORDERED: HOME MED LIST COMPLETE! XX SCH (15:45)
[2024-12-06] MEDS: MORPHINE 2 MG/ML 1ML VIAL IV ONE (15:47)
[2024-12-06 16:54] VITALS: BP 178/109; TEMP 97.7; O2SAT 97
[2024-12-06] MEDS: D5W/0.9% SODIUM CHLORIDE 1,000 ML IV SCH (17:43)
[2024-12-06] MEDS: ACETAMINOPHEN *IV* 1,000 MG in IV 1 EA IV PRN (17:44)
[2024-12-06] MEDS: ONDANSETRON 4MG 2ML VIAL IV PRN (18:35)
[2024-12-06] MEDS: LIDOCAINE VISCOUS 2% SOLN 15ML UDC SS PRN (18:36)
[2024-12-06 20:00] VITALS: BP 173/107; TEMP 97.7; O2SAT 96
[2024-12-06] MEDS: MORPHINE 2 MG/ML 1ML VIAL IV PRN (20:20)
[2024-12-06] MEDS ORDERED: NALOXONE INJ 0.4MG/1ML VIAL IV PRN (21:20)
[2024-12-06] MEDS: CHLORASEPTIC SPRAY MT PRN (22:23)
[2024-12-06] MEDS: diphenhydrAMINE 50MG/ML VIAL IV PRN (22:23)
[2024-12-07] VITALS (11 sets, daily range): BP systolic 140–210; BP diastolic 93–120; TEMP 97.2–97.7; O2SAT 95–96
[2024-12-07] MEDS: MORPHINE 2 MG/ML 1ML VIAL IV PRN ×2 (00:21→08:34)
[2024-12-07 05:50] LABS: HEMATOCRIT 40.8 % (36.0-47.0); MEAN CORPUSCULAR HEMOGLOBIN 25.9 pg (27.0-33.0); MEAN CORPUSCULAR HGB CONC 31.9 g/dl (32.0-36.5); MEAN CORPUSCULAR VOLUME 81.3 fl (80.0-96.0); PLATELET COUNT, AUTOMATED 268 10^3/uL (150-450); RED BLOOD COUNT 5.02 10^6/uL (4.00-5.40); WHITE BLOOD COUNT 8.8 10^3/uL (4.0-10.0)
[2024-12-07] MEDS: **hydrALAZINE HCL** 25 MG TAB PO ONE ×2 (06:49→12:50)
[2024-12-07 06:53] LABS: PROCALCITONIN <0.04 ng/ml
[2024-12-07 06:54] LABS: BLOOD UREA NITROGEN 10 MG/DL (9-23); CALCIUM LEVEL 9.2 MG/DL (8.3-10.6); CARBON DIOXIDE LEVEL 27 MMOL/L (20-31); CHLORIDE LEVEL 106 MMOL/L (98-107); CREATININE FOR GFR 0.73 MG/DL (0.55-1.30); GLOMERULAR FILTRATION RATE > 90.0 (>45); GLUCOSE, FASTING 93 MG/DL (74-106); POTASSIUM SERUM 3.8 MMOL/L (3.5-5.1); SODIUM LEVEL 143 MMOL/L (136-145)
[2024-12-07] MEDS: ENOXAPARIN 40MG/0.4ML SYRINGE (J1650 PER 10MG) SC SCH (07:46)
[2024-12-07] MEDS ORDERED: hydrALAZINE 20MG/ML 1ML VIAL IV PRN (08:00)
[2024-12-07] MEDS: MORPHINE 4 MG/ML 1ML VIAL IV PRN (10:39)
[2024-12-07] MEDS: cloNIDine HCL 0.2 MG/24 HR PATCH TOP SCH (16:18)
[2024-12-07] MEDS: **hydrALAZINE HCL** 25 MG TAB PO SCH (21:41)
[2024-12-08] VITALS (8 sets, daily range): BP systolic 154–184; BP diastolic 82–100; TEMP 97–98.2; O2SAT 95–98
[2024-12-08] MEDS ORDERED: ONDANSETRON 4MG ORAL DISINTEGRATING TAB PO PRN (00:45)
[2024-12-08] MEDS: PERCOCET 5MG/325MG TAB PO PRN ×2 (01:01→07:50)
[2024-12-08] MEDS: INSULIN LISPRO (NovoLOG) PER UNIT SC SCH ×2 (06:00→21:00)
[2024-12-08] MEDS ORDERED: GLUCAGON INJ 1MG VIAL SC PRN ×2 (08:05→11:20)
[2024-12-08] MEDS ORDERED: GLUCOSE 4 GM CHEW PO PRN ×2 (08:05→11:20)
[2024-12-08] MEDS ORDERED: DEXTROSE 50% 50ML SYRINGE IV PRN ×2 (08:05→11:20)
[2024-12-08] MEDS: PANTOPRAZOLE 40MG VIAL IV SCH (08:11)
[2024-12-08] MEDS: ONDANSETRON 4MG 2ML VIAL IV ONE (08:53)
[2024-12-08] MEDS ORDERED: PANTOPRAZOLE 40MG TAB (PROTONIX) PO SCH (09:00)
[2024-12-08] MEDS: LOSARTAN 50MG TABLET PO ONE (12:02)
[2024-12-08] MEDS: **hydrALAZINE HCL** 25 MG TAB PO SCH (13:44)
[2024-12-08] MEDS: GABAPENTIN 300 MG CAP PO SCH (21:30)
[2024-12-08] MEDS: ASPIRIN 81MG CHEW TABLET PO SCH (21:30)
[2024-12-09] VITALS: BP 149/91; TEMP 97.3; O2SAT 97
[2024-12-09 04:12] VITALS: BP 143/86; TEMP 97.7; O2SAT 97
[2024-12-09 06:17] LABS: HEMATOCRIT 39.2 % (36.0-47.0); HEMOGLOBIN 12.6 g/dl (12.0-15.5); MEAN CORPUSCULAR HEMOGLOBIN 26.4 pg (27.0-33.0); MEAN CORPUSCULAR HGB CONC 32.1 g/dl (32.0-36.5); MEAN CORPUSCULAR VOLUME 82.2 fl (80.0-96.0); PLATELET COUNT, AUTOMATED 253 10^3/uL (150-450); RED BLOOD COUNT 4.77 10^6/uL (4.00-5.40); WHITE BLOOD COUNT 7.5 10^3/uL (4.0-10.0)
[2024-12-09 08:00] VITALS: BP 155/76; TEMP 97.7; O2SAT 95
[2024-12-09 08:29] VITALS: BP 155/76; TEMP 97.7; O2SAT 95
[2024-12-09 09:00] VITALS: BP 155/76
[2024-12-09] MEDS: LOSARTAN 50MG TABLET PO SCH (09:00)
[2024-12-09] MEDS ORDERED: LOSA-528 PO (10:35)
== END 2024-12-09 11:24 | disposition home or self-care (01) | DRG 247 ==
LOC: M ED 08:45 → M ED INP 16:00 → M MSPAV 16:54
PROVIDERS: ADMIT Student in an Organized Health Care Education/Training Program; ATTEND Student in an Organized Health Care Education/Training Program
DX: K56.50 Intestinal adhesions [bands], unspecified as to partial versus complete obstruction (principal); I10 Essential (primary) hypertension; E11.9 Type 2 diabetes mellitus without complications; K43.9 Ventral hernia without obstruction or gangrene; Z79.82 Long term (current) use of aspirin; Z79.84 Long term (current) use of oral hypoglycemic drugs; Z79.4 Long term (current) use of insulin; Z79.899 Other long term (current) drug therapy; Z85.048 Personal history of other malignant neoplasm of rectum, rectosigmoid junction, and anus; Z92.21 Personal history of antineoplastic chemotherapy; Z90.49 Acquired absence of other specified parts of digestive tract; K56.7 Ileus, unspecified

== ENCOUNTER → 2024-12-13 | Outpatient (REF) | payer BC ==
[~2024-12-13] MED LIST changes: +ALIG4CAP3 PO; +HYOS0.3723 PO; +LOSA-528 PO; +NEXI1CAP4 PO; +ONDA-83 PO; +THERTAB52 PO
[2024-12-13 10:57] LABS: APPEARANCE, URINE CLEAR (CLEAR); BACTERIA, URINE AUTO 1+ (NEGATIVE); BILIRUBIN, URINE AUTO NEGATIVE (NEGATIVE); BLOOD, URINE BLOOD 1+ (NEGATIVE); COLOR, URINE YELLOW (YELLOW); GLUCOSE, URINE (UA) AUTO NEGATIVE (NEGATIVE); KETONE, URINE AUTO NEGATIVE (NEGATIVE); LEUKOCYTE ESTERASE, URINE AUTO 2+ (NEGATIVE); MUCUS, URINE SMALL (NEGATIVE); NITRITE, URINE AUTO NEGATIVE (NEGATIVE); PROTEIN, URINE AUTO NEGATIVE (NEGATIVE); RBC, URINE AUTO 2 /HPF (0-3); SPECIFIC GRAVITY URINE AUTO 1.008 (1.002-1.035); SQUAMOUS EPITHELIAL CELL UR AU 0 /HPF (0-6); UROBILINOGEN, URINE AUTO 0.2 mg/dL (0.0-2.0); WBC, URINE AUTO 3 /HPF (0-3)
== END ==
LOC: M SFHCPLAZ 10:10
PROVIDERS: ATTEND Family Medicine
DX: R30.0 Dysuria (principal)

== ENCOUNTER → 2025-05-30 | Outpatient (CLI) | payer BC ==
[~2025-05-30] MED LIST changes: +CAPE500T23 PO; +GNP250TA9 PO; -XELO1TAB PO
[2025-05-30 16:15] LABS: TOTAL 25(OH) VITAMIN D 38.1 NG/ML (20.0-100.0)
[2025-05-30 16:25] LABS: ESTIMATED AVERAGE GLUCOSE 154.0 MG/DL (60-110)
[2025-05-30 16:26] LABS: CREATININE, URINE 81.1 MG/DL; MALB URINE SIEMENS < 3.0 MG/L
[2025-05-30 16:36] LABS: ALT/SGPT 25.0 U/L (7.0-40); AST/SGOT 22.0 U/L (<34); CALCIUM LEVEL 9.5 MG/DL (8.3-10.6); CARBON DIOXIDE LEVEL 27.0 MMOL/L (20-31); CHLORIDE LEVEL 105.0 MMOL/L (98-107); CHOLESTEROL LEVEL 157.0 MG/DL (<200); CHOLESTEROL RISK RATIO 2.47 (<5); CREATININE FOR GFR 0.86 MG/DL (0.55-1.30); GLOMERULAR FILTRATION RATE 75.4 (>45); LDL CHOLESTEROL 57.9 MG/DL (<100); NON-HDL-C 93.5 MG/DL; POTASSIUM SERUM 4.7 MMOL/L (3.5-5.1); SODIUM LEVEL 142.0 MMOL/L (136-145); TRIGLYCERIDES LEVEL 178.0 MG/DL (<150)
== END ==
LOC: M PLALAB 13:50
PROVIDERS: ATTEND Family Medicine
DX: E03.8 Other specified hypothyroidism (principal); E11.9 Type 2 diabetes mellitus without complications; E78.2 Mixed hyperlipidemia; E55.9 Vitamin D deficiency, unspecified

== ENCOUNTER → 2025-05-31 | Outpatient (CLI) | payer BC ==
[2025-05-31 15:00] LABS: BASO # 0.1 10^3/uL (0.0-0.2); BASO % 0.7 % (0.0-1.0); EOS # 0.1 10^3/uL (0.0-0.5); EOS % 1.4 % (0.0-3.0); LYMPH # 2.0 10^3/uL (1.5-5.0); LYMPH % 24.5 % (24.0-44.0); MONO # 0.6 10^3/uL (0.0-0.8); MONO % 6.6 % (2.0-8.0); NEUTROPHILS # 5.5 10^3/uL (1.5-8.5); NEUTROPHILS % 66.4 % (36.0-66.0); PLATELET COUNT, AUTOMATED 301 10^3/uL (150-450)
[2025-06-02 12:18] LABS: HPV APTIMA Not Detected (Not Detected)
== END ==
LOC: M PLALAB 10:10
PROVIDERS: ATTEND Family Medicine
DX: Z01.810 Encounter for preprocedural cardiovascular examination (principal); Z12.4 Encounter for screening for malignant neoplasm of cervix; R87.610 Atypical squamous cells of undetermined significance on cytologic smear of cervix (ASC-US)
CPT/HCPCS: 36415; 85025; 87624; G0123